=== PATIENT | female | born 1945 | race Caucasian/White ===

== ENCOUNTER 2017-02-17 12:39 | Inpatient (IN) | payer OTHER ==
[2017-02-17] VITALS (10 sets, daily range): BP systolic 68–115; BP diastolic 55–93
[~2017-02-17] VITALS: Ht 162.6 cm; Wt 94.1 kg
--- NOTE | ~2017-02-17 | HC ---
[facility] [place] [address] CONSULTATION Name: TRAVIS FISCHER Room #: 249-P ADM IN M.R.#: [id number] Admission: 02/17/17 Attend Phys: Lakeisha Escobar Discharge: Date of : 43 Report #: [id number] THIS REPORT FOR: //name// CC: FAM unknown Lakeisha Escobar Jasvir Albert DATE OF SERVICE: 02/26/2017 CHIEF COMPLAINT: Ischemic fingers and toes. HISTORY OF PRESENT ILLNESS: This is a 71-year-old female patient who was admitted to the hospital on 02/17/2017 with septic shock. She had been lethargic and was unable to stand on her own. She was visiting her son. She was noted to have ureteral calculus with urinary tract infection and E. coli sepsis. She was severely hypotensive and required support with multiple pressors over several days. She has developed some ischemic changes to her fingertips and toes. Subsequently, however, her sepsis picture has improved significantly. She is no longer on pressors and is awake and alert and not requiring any ventilatory support. PAST MEDICAL HISTORY: Positive once again for history of cardiomyopathy, multilobar pneumonia, urinary tract infection with Escherichia coli sepsis, hypertension. ALLERGIES: None. MEDICATIONS: Include acetaminophen, human albumin, amiodarone, chlorhexidine, Cipro, enoxaparin, hydrocodone, nitroglycerin, ondansetron, pantoprazole. She had previously been on Levophed as well as epinephrine and vasopressin drips. She also takes calcium carbonate, bupropion, aspirin, amitriptyline, cholecalciferol, cyclosporine, dicyclomine, fexofenadine, Synthroid, mometasone, montelukast, topiramate, primidone. FAMILY HISTORY: Noncontributory. REVIEW OF SYSTEMS: CONSTITUTIONAL: The patient denies fever or any chills. ENT: The patient denies earache, nasal drainage, sore throat. CARDIOVASCULAR: The patient denies chest pain or palpitations, diaphoresis. PULMONARY: The patient notes mild shortness of breath. GASTROINTESTINAL: The patient denies nausea or abdominal pain. ORTHOPEDIC: The patient does note blueness and discoloration to her fingertips, but denies pain and states that she still has tactile sensation there. Other systems in a 14-point review of systems are negative. [address] [address] CONSULTATION Name: TRAVIS FISCHER Room #: 249-P [facility] IN M.R.#: [id number] Admission: 02/17/17 Attend Phys: Lakeisha Escobar Discharge: Date of : 43 Report #: [id number] PHYSICAL EXAMINATION: VITAL SIGNS: At this time include temperature 36.6, pulse rate 94, blood pressure 101/57, pulse oximetry 98% on oxygen shield. GENERAL: This is a chronically ill-appearing female patient appears to be in minimal distress. HEENT: Head is normocephalic. Nose and throat clear. NECK: Supple. LUNGS: Diminished. HEART: Regular rhythm. ABDOMEN: Soft. Bowel sounds present. EXTREMITIES: Demonstrate palpable distal pulses. She has discoloration, duskiness, blueness and some areas of early eschar to the tips of almost all of her fingers. Her toes have much less color change and appear that they have normal capillary refill. Her fingertips, however, continued to feel soft and she seems to have tactile and light touch sensation present. LABORATORY DATA: Includes sodium 137, potassium 3.3, chloride 104, CO2 of 33, BUN 13, creatinine 0.8, glucose 128. SGOT is 93, total bilirubin 0.5, calcium 7.4, phosphorus 1.8, alkaline phosphatase 121, SGPT 101, total protein 4.8, white blood cell count is 10.6 with hemoglobin 6.8, hematocrit 20.0. CLINICAL IMPRESSION: 1. Ischemic changes to the tips of the fingers and less so to the toes in the setting of severe septic shock requiring vasopressor support. 2. Escherichia coli sepsis. 3. History of cardiomyopathy. 4. Obstructive uropathy with left-sided hydronephrosis, status post urostomy. RECOMMENDATIONS: At this point in time, the patient has had a bilateral upper extremity Doppler, which shows no obstruction. At this point, she is no longer requiring vasopressor support and seems to be perfusing fairly well. It is difficult to say whether she will have any tissue loss involving her fingers. At this point now; however, the fingers appear to be soft and there may be viable tissue present. I do not feel that it would be appropriate to debride. I do not think that she will require topical Betadine at this time as the tissue still seems pliable. I think that she will probably have some shutting or sloughing at some of the outer layers of skin with hopes that there may be a healthy base underneath with ultimately no tissue loss, although this cannot be guaranteed. I have discussed these findings extensively and answered all questions at the bedside for the patient and family members. At this point, simple observation would be appropriate. We will continue to follow her [facility] [address] [place] [address] CONSULTATION Name: TRAVIS FISCHER Room #: 249-P ADM IN M.R.#: [id number] Admission: 02/17/17 Attend Phys: Lakeisha Escobar Discharge: Date of : 43 Report #: [id number] closely. I have reviewed findings with Dr. Harshal Subramanian. I appreciate having been asked to see her in consultation. <ELECTRONICALLY SIGNED> By: Pedro Santillan MD 03/01/17 0834 1740 0045 Pedro Santillan MD /nt
--- NOTE | ~2017-02-17 | EKG ---
[place] [address] [facility] [place] [address] ELECTROCARDIOGRAM REPORT Name: TRAVIS FISCHER Room #: 249-P ADM IN M.R.#: [id number] Admission: 02/17/17 Attend Phys: Lakeisha Escobar Discharge: Date of : 43 Report #: [id number] THIS REPORT FOR: //name// [facility] ED Test Date: 2017-02-17 Test Time: 14:16:29 Pat Name: TRAVIS FISCHER Department: Room: 249 Gender: F Diesel Mechanic: debra goldberg rn : 1945 Requested By: Chandra Soriano Order Number: [id number] MD: Chad Weeks Measurements Intervals [place] Rate: 95 P: 11 NE: 158 QRS: -32 QRSD: 107 T: 41 QT: 336 QTc: 423 Interpretive Statements Sinus rhythm Inferior infarct, old No previous ECG available for comparison Electronically Signed On 02-17-2017 23:04:28 DIRECTOR OF CONSUMER MARKETING by Chad Weeks [email or web address] <ELECTRONICALLY SIGNED> By: Chad Weeks MD 02/17/17 2304 1416 141 Chad Weeks MD /DAVID
--- NOTE | ~2017-02-17 | 2DMMODE ---
[facility] [address] [employer] [address] 2 D/M-MODE ECHOCARDIOGRAM Name: AMADOTRAVIS Room #: 249-P ADM IN M.R.#: [id number] Admission: 02/17/17 Attend Phys: Lakeisha Castrejon Discharge: Date of : 43 Date of Service: 02/21/17 1210 Report #: [id number] THIS REPORT FOR: //name// APPROVED REPORT Study performed: 02/20/2017 10:09:16 EXAM: Comprehensive 2D, Doppler, and color-flow Echocardiogram Patient Location: Bedside Room #: 249 Status: on-call BSA: 2.08 HR: 99 bpm BP: 112/72 mmHg Rhythm: NSR Other Information Study Quality: Good Risk Factors: Cardiac Risk Factors: HTN Indications Cardiomyopathy Respiratory distress Elevated troponin 2D Dimensions LVEF(%): 32.18 (>50%) IVSd: 7.45 (7-11mm) LVOT Diam: 20.44 (18-24mm) LVDd: 58.46 mm PWd: 8.12 (7-11mm) Ascending Ao: 36.36 (22-36mm) LVDs: 49.41 (25-40mm) Aortic Root: 32.02 mm LV Single Plane 4CH: 27.91 % LV Single Plane 2CH: 23.65 % Quiroz's LVEF: 25.78 % Biplane EF: 24.3 % Volumes Left Atrial Volume (Systole) Single Plane 4CH: 53.52 mL Single Plane 2CH: 48.76 mL LA ESV Index: 26.00 mL/m2 Aortic Valve AoV Peak Alexei.: 0.98 m/s [facility] [address] [address] 2 D/M-MODE ECHOCARDIOGRAM Name: TRAVIS FISCHER Room #: 249-P [facility] IN [facility].#: [id number] Admission: 02/17/17 Attend Phys: Lakeisha Castrejon Discharge: Date of : 43 Date of Service: 02/21/17 1210 Report #: [id number] Peak Gr.: 3.84 mmHg LVOT Max P.04 mmHg LVOT Max V: 0.51 m/s PRASHANT Vmax: 1.70 cm2 Mitral Valve E/A Ratio: 1.0 MV Decel. Time: 144.12 ms MV E Max Alexei.: 0.73 m/s MV A Alexei.: 0.75 m/s MV PHT: 41.79 ms IVRT: 79.58 ms TDI E/Lateral E': 18.25 E/Medial E': 14.60 Medial E' Alexei.: 0.05 m/s Lateral E' Alexei.: 0.04 m/s Pulmonary Valve PV Peak Alexei.: 0.70 m/s PV Peak Gr.: 1.98 mmHg DE End Vmax: 1.72 m/s Tricuspid Valve TR Peak Alexei.: 2.62 m/s TR Peak Gr.: 27.43 mmHg Left Ventricle The left ventricle is normal size. There is global hypokinesis of the left ventricle with the exception of a very small basilar region. There is normal left ventricular wall thickness. Left ventricular systolic function is severely decreased. LVEF is 25-30%. Grade I - abnormal relaxation pattern. Right Ventricle The right ventricle is normal size. The right ventricular systolic function is normal. Atria The left atrium size is normal. The right atrium size is normal. Aortic Valve The aortic valve is normal in structure. No aortic regurgitation is present. There is no aortic valvular stenosis. Mitral Valve The mitral valve is normal in structure. Moderate to severe mitral [address] [address] 2 D/M-MODE ECHOCARDIOGRAM Name: TRAVIS FISCHER Room #: 249-P [facility] IN ..#: [id number] Admission: 02/17/17 Attend Phys: Lakeisha Casterjon Discharge: Date of : 43 Date of Service: 02/21/17 1210 Report #: [id number] regurgitation No evidence of mitral valve stenosis. Tricuspid Valve The tricuspid valve is normal in structure. Mild to moderate tricuspid regurgitation. Pulmonic Valve The pulmonary valve is normal in structure. Moderate pulmonic regurgitation. Great Vessels The aortic root is normal in size. IVC is not well visualized. Pericardium There is no pericardial effusion. <Conclusion> The left ventricle is normal size. LVEF is 25-30%. There is global hypokinesis of the left ventricle with the exception of a very small basilar region. The aortic valve is normal in structure. The mitral valve is normal in structure. Moderate to severe mitral regurgitation with an eccentric jet The tricuspid valve is normal in structure. Mild to moderate tricuspid regurgitation. The pulmonary valve is normal in structure. Moderate pulmonic regurgitation. There is no pericardial effusion. <ELECTRONICALLY SIGNED> By: Richy Patel MD 02/21/17 1210 1210 09 Richy Patel MD /INF
--- NOTE | ~2017-02-17 | EKG ---
[place] [address] [facility] [place] [address] ELECTROCARDIOGRAM REPORT Name: AMADOTRAVIS Room #: 249-P ADM IN M.R.#: [id number] Admission: 02/17/17 Attend Phys: Lakeisha Escobar Discharge: Date of : 43 Report #: [id number] THIS REPORT FOR: //name// [facility] Test Date: 2017-02-17 Test Time: 22:19:10 Pat Name: TRAVIS FISCHER Department: Room: 249 P Gender: F Digital Project Coordinator: Griselda ODONNELL : 1945 Requested By: Lakeisha Escobar Order Number: [id number] MD: Chad Weeks Measurements Intervals [place] Rate: 96 P: 44 [place]: 131 QRS: -46 QRSD: 129 T: 52 QT: 377 QTc: 477 Interpretive Statements Sinus rhythm Nonspecific IVCD with LAD No previous ECG available for comparison Electronically Signed On 02-17-2017 23:09:09 RESTAURANT ATTENDANT by Chad Weeks [email or web address] <ELECTRONICALLY SIGNED> By: Chad Weeks MD 02/17/17 2309 18 18 Chad Weeks MD /DAVID
--- NOTE | ~2017-02-17 | EKG ---
[place] [address] [facility] [place] [address] ELECTROCARDIOGRAM REPORT Name: TRAVIS FISCHER Room #: 249-P ADM IN M.R.#: [id number] Admission: 02/17/17 Attend Phys: Lakeisha Escobar Discharge: Date of : 43 Report #: [id number] THIS REPORT FOR: //name// [facility] Test Date: 2017-02-25 Test Time: 06:11:06 Pat Name: TRAVIS FISCHER Department: Room: 249 P Gender: F Adventure Guide: KWAME : 1945 Requested By: Domenic Escoto Order Number: [id number] MD: Miguel A Jerez Measurements Intervals [place] Rate: 93 P: 20 [place]: 127 QRS: -43 QRSD: 111 T: 51 QT: 429 QTc: 534 Interpretive Statements Sinus rhythm Left anterior fascicular block Early R-wave progression Nonspecific intraventricular conduction delay Prolonged QT interval Nonspecific T wave abnormality Compared to ECG 02/17/2017 22:19:10 Nonspecific change in the ST and T-wave segments Electronically Signed On 02-25-2017 8:06:02 PET [employer]OD DEBONER by Miguel A Jerez [email or web address] <ELECTRONICALLY SIGNED> By: Miguel A Jerez MD, [facility] 02/25/17 0806 0 Miguel A Jerez MD, [facility] /EPI
--- NOTE | ~2017-02-17 | S ---
[facility] [place] [address] SURGICAL PATH RPT PROCEDURE Name: TRAVIS FISCHER Room #: 249-P ADM IN M.R.#: [id number] Admission: 02/17/17 Date of : 43 Discharge: Report #: [id number] Path Case #: [id number] PATHOLOGY REPORT COLLECTION DATE: 02/23/2017 RECEIVED DATE: 02/23/2017 SUBMITTING PHYS: Dr. Lakeisha Escobar OTHER PHYS: Dr. Jasvir Lucas SPECIMEN(S) RECEIVED: A.Peripheral smear * * * * * * * * * * * * FINAL DIAGNOSIS: Peripheral smear: - Thrombocytopenia, marked, with occasional circulating large platelets. - Mild neutrophilic leukocytosis with leukoerythroblastic reaction and toxic changes. - Normocytic normochromic anemia, mild. COMMENT: The peripheral smear shows marked thrombocytopenia with occasional circulating large platelets, mild normocytic normochromic anemia, and mild neutrophilic leukocytosis with leukoerythroblastic reaction and toxic changes. With regard to the thrombocytopenia, would rule out causes of increased peripheral platelet destruction, such as ITP. In that regard, I see no evidence of a red cell fragmentation disorder. With regard to the neutrophilic leukocytosis with toxic changes, would rule out causes of a reactive neutrophilia. The leukoerythroblastic reaction is most likely reactive. (ANNEM:shay; 02/23/2017) PATHOLOGIST: Adrian Brasher M.D. REPORT ELECTRONICALLY SIGNED BY: Adrian Brasher M.D. DATE/TIME: 02/23/2017 16:40 * * * * * * * * * * * * MICROSCOPIC DESCRIPTION: Laboratory Data: The WBC count is 22.8 K/CMM, and the WBC differential reveals 82% segmented neutrophils, 7.0% bands, 4.0% lymphocytes, 6.0% monocytes, and 1.0% eosinophils. The RBC count is 3.60 M/CMM, hemoglobin 10.7 G/DL, hematocrit 32.5%, MCV 90.1 FL, MCH 29.7 PG, MCHC 32.9 G/DL, and the RDW is 16.7%. The platelet count is 26 K/CMM. [address] [address] SURGICAL PATH RPT PROCEDURE Name: TRAVIS FISCHER Room #: 249-P ADM IN [facility].#: [id number] Admission: 02/17/17 Date of : 43 Discharge: Report #: [id number] Path Case #: [id number] Peripheral Smear: The peripheral smear is reviewed. The WBC count is mildly increased due to an absolute neutrophilia. The WBC differential reveals a predominance of segmented neutrophils, with smaller populations of band neutrophils, monocytes, and lymphocytes noted. Some neutrophils show toxic granulation. There is a leukoerythroblastic reaction which is comprised of occasional circulating myelocytes and metamyelocytes and rare circulating nucleated red blood cells. There are no circulating blasts. The lymphocyte population consists predominantly of small lymphocytes. There is an occasional reactive lymphocyte and a few plasma cells noted. Red blood cells predominantly appear normochromic and normocytic. Red blood cells show mild anisocytosis. Red blood cells show no significant poikilocytosis. There is no morphologic evidence of hemolysis or red cell fragmentation disorder. Platelets are markedly decreased with occasional large platelets noted. (JPM:rlm; 02/23/2017) CLINICAL HISTORY: None Provided INITIAL CPT CODE(S): A; NC Professional services performed by [employer] at [facility], [address] [place] [address]. Technical services performed by [employer] at [address] [place] [address], [address], [place] [address]. Chandra Soriano [facility] [address] [place] [address] PHONE: [phone] DIRECTOR: Benson Lazo M.D. * * * END OF REPORT * * *
--- NOTE | ~2017-02-17 | HC ---
[facility] [place] [address] CONSULTATION Name: AMMYJESSITRAVIS Room #: 249-P ADM IN M.R.#: [id number] Admission: 02/17/17 Attend Phys: Lakeisha Escobar Discharge: Date of : 43 Report #: [id number] THIS REPORT FOR: //name// CC: FAM unknown Lakeisha Escobar Jasvir Albert DATE OF SERVICE: 02/17/2017 REASON FOR CONSULTATION: Elevated creatinine. HISTORY OF PRESENT ILLNESS: This is a 71-year-old female who lives in [place], [place]. She traveled down to be with family here in the [place] area two days ago. Early yesterday she felt fine, although somewhat weak. By late yesterday, she was beginning to have some left flank pain and was concerned that she might have a kidney stone. She has a past history of kidney stones. By this morning, she was unable to get up and then was found on the floor, the weakness persisted, she had some slurred speech, slowed sensorium and was brought here to the Emergency Room. Upon presentation, she was found to be febrile to 99.7 degrees Fahrenheit. She originally had a good blood pressure, but then she has gotten hypotensive with pressures in the 80s and 90s systolic. She has been tachycardic with low 100 rate. She has been on some supplemental oxygen. She has gotten 4 liters of IV fluid. With that, blood pressure has not changed very much. She is more awake and responsive though. The patient was found to have a BUN of 50, creatinine of 3.7 and elevated transaminases with an AST of 1396 and ALT of 1142. Lactate was 3.4. White count was 12.7. She had a chest x-ray which showed potential bilateral infiltrates. She was acidotic on a blood gas with a pH of 7.26, pCO2 of 31 and pO2 of 69. Lactate on that was only 1.44. Her urinalysis showed some pyuria and hematuria. In talking to the patient at this time, she is more awake. Originally, she does not complain much of the flank pain. She tells me she has had kidney stones intermittently over the years and she is quite certain that it felt like that yesterday, less so today. In spite of that, she has not had much intake of food and fluids and this was further confirmed by her son who is with her at this time. She is unaware of how much urine she has been passing. She states that the last time she had a kidney stone, it had to be extracted surgically. PAST MEDICAL HISTORY: Hypothyroidism on replacement. She has some osteoporosis. She has had numerous surgeries over the years include tonsillectomy and adenoidectomy as a child, appendectomy in 1967, nasal surgery, tubal ligation in 1980, hysterectomy in the , abdominoplasty in 1996, bladder suspension in 1999, cholecystectomy in 1999, left shoulder surgery in 2001, rotator cuff in 2005 on the right shoulder, lumpectomy in the left breast in 2011 and right breast in 2004 apparently benign, nephrolithotomy in 2009, right total hip replacement in 2012, skin cancer removed from her nose about a [facility] [address] [place] [address] CONSULTATION Name: TRAVIS FISCHER Room #: 249-P ADM IN M.R.#: [id number] Admission: 02/17/17 Attend Phys: Lakeisha Escobar Discharge: Date of : 43 Report #: [id number] year ago and further repair of her right hip in 2015 after the joint became displaced. MEDICATIONS: On admission, amitriptyline 100 mg daily, Topamax 25 mg b.i.d., bupropion 150 mg t.i.d., fexofenadine 180 mg daily, Nasonex 50 mcg inhaled, levothyroxine 0.05 mg daily, omeprazole 20 mg daily, Restasis eye drops, aspirin 81 mg daily, multivitamin daily, calcium plus vitamin D 600 mg daily, primidone 50 mg b.i.d., montelukast 10 mg daily, MiraLax 17 gram daily, dicyclomine 20 mg p.r.n. and also apparently got some Prolia. FAMILY HISTORY: Noncontributory. SOCIAL HISTORY: The patient is a and lives in [place], [place]. She is retired. She is down visiting family including a son and a daughter apparently both who live in the area here. REVIEW OF SYSTEMS: Past day or two has had a poor intake of food and fluids. Denies nausea at this time. No vomiting, no diarrhea, although obviously by her meds, she has some chronic bowel issues. Reports no difficulty passing urine. She did have some left flank discomfort. Mild chronic dyspnea worse recently. She has had some recent cough. Unaware of fevers, chills or sweats, myalgias, arthralgias. No oral lesions. Reports no visual or hearing changes. PHYSICAL EXAMINATION: GENERAL: Acutely ill-appearing female. She is more awake than she has been and is responding fairly readily to me and giving a very pertinent history. VITAL SIGNS: Blood pressure 92/62, heart rate 100, oxygen saturation 94% and respiratory rate 22. HEENT: Shows pupils are equal and reactive. Sclerae nonicteric. Oral mucosa is parched. NECK: Supple, no adenopathy or JVD, no bruit. CHEST: Shows decreased breath sounds, right side and better excursion on the left. I hear no wheezes or rales. HEART: Distant heart tones with regular rate and rhythm ____ on a tachycardia. ABDOMEN: Has diminished bowel sounds. Abdomen is tender in the left upper quadrant. I cannot find organomegaly or masses. BACK: Shows very substantial left CVA tenderness and left flank tenderness. EXTREMITIES: Show no peripheral edema. She has diminished pedal pulses. NEUROLOGIC: She is moving all extremities and is more alert and responsive at this time. DIAGNOSTIC DATA: Sodium 138, potassium 4.6, chloride 105, bicarbonate 18, BUN 50, creatinine 3.7 and glucose 95. AST 1396, ALT 1142, calcium 9.3, alkaline phosphatase is 183, total protein 6.6, albumin 3.2. INR is 1.2. White count 18.5, hemoglobin 12.5, hematocrit 38.8 and platelets 144,000. Urinalysis on admission: Specific gravity 1.025, pH 6.0, 1+ protein, 2+ blood, 2+ leukocytes with 6-15 white cells, 3-10 red cells and many bacteria. Blood gas pH 7.26, [address] [address] CONSULTATION Name: TRAVIS FISCHER Room #: 249-P [facility] IN M.R.#: [id number] Admission: 02/17/17 Attend Phys: Lakeisha Escobar Discharge: Date of : 43 Report #: [id number] pCO2 of 31 and pO2 of 69. ASSESSMENT AND PLAN: 1. Sepsis with leukocytosis, low grade fever, hypotension. I am very concerned that she has an obstructive kidney stone with infection behind it. She is very tender in the left flank. She has a long history of nephrolithiasis although her last one was prior couple of years ago. We need to image her kidney to identify if she is obstructed because she may need a percutaneous nephrostomy to take care of that. From a sepsis standpoint, she has already gotten 4 liters of IV fluids. She needs some maintenance IV fluids. There is some concern over her respiratory status, but on looking at her, she is not volume overloaded. Blood pressure is actually improving at this point running systolic in the 90s and the mean arterial pressure more in the 70s. We will put her on some saline at 150 an hour. 2. Acute kidney injury. She might have some chronic component of this. She remembers being told when she was getting her Prolia shot that her creatinine levels have been a bit elevated at home and that was in the last couple of months. With that in mind, she likely has some chronic kidney disease. We will have to see how she responds at this point, but I think that 3.2 is definitely elevated. 3. Nephrolithiasis, high suspicion. We will get a CT with stone protocol to look at that obviously. No IV contrast. Pending those results, she may need intervention either from Urology or from Radiology to relieve that obstruction. 4. Pulmonary infiltrates, now on broad-spectrum antibiotics. 5. Urinary tract infection with hematuria and pyuria. Again very concerned for a stone. 6. Elevated transaminases. To be at this level, this is either septic, ischemic or toxic from a drug. I cannot find that she has gotten any toxic levels of acetaminophen or another agent and certainly suggests this is more hypotension/sepsis. PLAN: 1. We will give a CT scan tonight, stone protocol, no IV contrast. 2. Start IV fluids, normal saline at 150 mL per hour. 3. Continue broad-spectrum antibiotics. 4. Await culture results. 5. Repeat labs in the morning. 6. If she has further hypotension, she will need pressors. 7. Very close followup with this acutely ill patient. <ELECTRONICALLY SIGNED> By: Jasvir Albert MD 02/28/17 1231 [id number] Jasvir Albert MD /nt
--- NOTE | ~2017-02-17 | HC ---
[facility] [place] [address] [place] [address] CONSULTATION Name: TRAVIS FISCHER Room #: 249-P ADM IN M.R.#: [id number] Admission: 02/17/17 Attend Phys: Lakeisha Escobar Discharge: Date of : 43 Report #: [id number] THIS REPORT FOR: //name// CC: FAM unknown Lakeisha Albert TYPE OF REPORT: Infectious diseases consultation. REASON FOR CONSULTATION: I was asked to evaluate concerning a gram-negative septic shock. HISTORY OF PRESENT ILLNESS: The patient is a 71-year old who lives in [place], who was visiting her son this week. For the last 48 hours had complained of generalized weakness and being cold. She then developed some left flank discomfort. On 02/17/2017, she presented to the Emergency Room after being too weak to get up off the toilet. She was also confused. She had some slurred speech. When presenting to the Emergency Room, she was noted to have fever. Following admission, she has had CT scan, which showed evidence of left ureteral obstruction. Urine culture has grown E. coli. Blood cultures have shown gram-negative bacilli yet to be identified. She underwent a percutaneous nephrostomy last evening. Last evening, underwent left percutaneous nephrostomy without complication. Through the night, the patient has been hypotensive, on Levophed drip. She then developed respiratory failure, required emergent intubation and mechanical ventilation. She is now on Levophed drip and vasopressin. She is sedated. No cardiac issues identified. ALLERGIES: No known allergies. MEDICATIONS: As noted on her MAR. She was given vancomycin, Zosyn and levofloxacin. PAST MEDICAL HISTORY: Hypothyroidism, osteoporosis, nephrolithiasis, hysterectomy, abdominoplasty, bladder suspension surgery, cholecystectomy, bilateral shoulder surgeries, left breast mass 2005 status post lumpectomy and record states that was benign and the patient's son states she had cancer and right total hip arthroplasty with a second revision. FAMILY HISTORY: Noncontributory. SOCIAL HISTORY: Nonsmoker. No significant alcohol intake. REVIEW OF SYSTEMS: Prior to her admission, she had no cough, sputum, nausea, vomiting or diarrhea. Did not report any dysuria or frequency either. PHYSICAL EXAMINATION: VITAL SIGNS: She is currently afebrile, blood pressure is stable on [facility] [address] [place] [address] CONSULTATION Name: TRAVIS FISCHER Room #: [address] [place] [address] IN .R.#: [id number] Admission: 02/17/17 Attend Phys: Lakeisha Escobar Discharge: Date of : 43 Report #: [id number] vasopressors. She was sedated. GENERAL: She is orally intubated. Left nephrostomy tube was in place with clear urine in the tubing. Did have some bloody urine in the bag. Indwelling Al catheter in place with clear urine. Right upper extremity PICC was unremarkable. CHEST: Clear anteriorly. HEART: Regular, without murmur. ABDOMEN: Soft. The patient would grimace with palpation. No appreciable mass identified. EXTREMITIES: Unremarkable. LABORATORY STUDIES: Sodium 137, potassium 4.5, bicarbonate of 19 and creatinine 4.3. Lactate 2. AST 193. ALT 144, bilirubin 2.6 and alkaline phosphatase 125. Hemoglobin 10.6; platelet count 54,000 and white count 16.7 with 15% bands. MRSA screen negative. Urinalysis, few wbc's, rbc's and many bacteria. I do not have a sample from the left nephrostomy. Urine culture, E. coli, fully susceptible. Blood culture, gram-negative bacilli, identification pending. RADIOLOGICAL DATA: Chest x-ray, perihilar infiltrates with basilar changes as well. There was some vascular congestion. IMPRESSION AND RECOMMENDATIONS: Septic shock with Escherichia coli pyelonephritis and ureteral obstruction from a stone. She has multisystem failure with respiratory failure, hyperbilirubinemia, likely shock liver and acute renal failure. Recommend full intensive care unit care with sepsis protocol and antibiotic therapy. Urology has been following. Discussed with Pulmonary Medicine this morning. We will continue aggressive measures. Discussed with family at the bedside. <ELECTRONICALLY SIGNED> By: Domenic Escoto MD 02/20/17 1044 1230 32 Domenic Escoto MD /nt
--- NOTE | ~2017-02-17 | HC ---
[facility] [address] [address] [place] [address] CONSULTATION Name: TRAVIS FISCHER Room #: 249-P ADM IN M.R.#: [id number] Admission: 02/17/17 Attend Phys: Lakeisha Escobar Discharge: Date of : 43 Report #: [id number] THIS REPORT FOR: //name// CC: FAM unknown Lakeisha Escobar Jasvir Albert DATE OF SERVICE: 02/18/2017 HISTORY OF PRESENT ILLNESS: This is a 71-year-old female patient who was evaluated by me for a complicated history. History is not very clear. The neurological consultation is requested because of the leg weakness. The best history I can tell is that this is going on for several months or may be years. She had hip replaced. Initially, it did well, but subsequently it has given her a lot of problems. So she has trouble with the right lower extremity. She apparently fell and after that, she has quite a significant trouble with the lower extremities and she is profoundly weak there. She had pelvic x-rays done and that did not show any definite abnormality. She lives in [place] and was visiting her son and she also has numerous other medical problems including kidney problems and respiratory problem. REVIEW OF SYSTEMS: Indicated that she has a history of congestive heart failure, acute kidney injury, looks like she has stone and she is being evaluated by Urology. She denies any stroke in the past. She may have had some trouble with both legs to some extent, but I do not think the arm was affected. This was her relevant 14-point review of system. PAST MEDICAL HISTORY: Negative for any major stroke, but is positive for right hip problem. FAMILY HISTORY: Negative for early age stroke. SOCIAL HISTORY: She presently lives with her son, usually she lives in [place]. PHYSICAL EXAMINATION: Indicate she is alert. She is responsive. She can follow simple command. Her speech, concentration, fund of knowledge and memory looks her baseline. Cranial nerve examination 2-12 is unremarkable. Strength in the upper extremity is relatively preserved. Strength in the lower extremities is significantly diminished, especially in the proximal musculature. She indicates that her position sense is intact. She is moderately obese. She is in respiratory distress. She has no carotid bruit or renal mass. She does not have any edema, cyanosis or jaundice. Her blood pressure is 100/73, respirations 26, pulse is 108. LABORATORY DATA: Indicate white count of 14.2. She did have a CT scan of the head, which looks unremarkable. [facility] [address] [place] [address] CONSULTATION Name: TRAVIS FISCHER Room #: 249-P [facility] IN .R.#: [id number] Admission: 02/17/17 Attend Phys: Lakeisha Escobar Discharge: Date of : 43 Report #: [id number] IMPRESSION: It is not clear what the etiology of her leg weakness is. I think she needs some more workup because it looks like it had become worse recently. We do not have an EMG which we need and we will start with MRI of the thoracic and lumbar spine to make sure that no pathology occurred when she fell down. She indicates there is no contraindication. We will make sure Pulmonary is okay before she go for that. RECOMMENDATION: 1. MRI of the lumbar and thoracic spine. 2. Evaluate further depending upon that. 3. MRI should make sure that there is no problem with her artificial hip. Thank you very much for this referral and Dr. Toth will follow up this patient with you tomorrow. <ELECTRONICALLY SIGNED> By: Micheal Gibson MD 02/26/172000 1035 2209 Micheal Gibson MD /nt
[2017-02-17 14:25] LABS: HEMATOCRIT 38.8 % (37.0-47.0); HEMOGLOBIN 12.5 gm/dL (12.0-15.0); MCHC 32.4 g/dL (28.0-37.0); MCV 92.6 fL (80.0-100.0); RBC 4.18 mil/uL (4.20-5.00); RDW 17.4 % (10.5-14.5); WBC 18.5 thou/uL (4.0-11.0)
[2017-02-17 14:49] LABS: ALBUMIN 3.2 g/dL (3.4-5.0); ANION GAP 15 mmol/L (7-16); CALCIUM 9.3 mg/dL (8.5-10.1); CHLORIDE 105 mmol/L (98-107); CO2 18 mmol/L (21-32); CREATININE 3.7 mg/dL (0.6-1.0); GLUCOSE 95 mg/dL (74-106); POTASSIUM 4.6 mmol/L (3.5-5.1); SGOT 1396 U/L (15-37); SGPT 1142 U/L (30-65); SODIUM 138 mmol/L (136-145); TOTAL BILIRUBIN 2.5 mg/dL (<0.1-1.0); TOTAL PROTEIN 6.6 g/dL (6.4-8.2); TROPONIN-I < 0.04 ng/mL (<0.06)
[2017-02-17 14:50] LABS: BUN 50 mg/dL (7-18)
[2017-02-17 15:32] LABS: URINE BILIRUBIN NEGATIVE (Negative); URINE BLOOD 2+ (Negative); URINE CLARITY CLEAR; URINE COLOR YELLOW; URINE GLUCOSE-RANDOM* NEGATIVE (Negative); URINE KETONES NEGATIVE (Negative); URINE NITRITE-REFLEX NEGATIVE (Negative); URINE PROTEIN (DIPSTICK) 1+ (Negative); URINE SPECIFIC GRAVITY 1.025 (1.005-1.035); URINE UROBILINOGEN 0.2 E.U./dl (0.2-1.0)
[2017-02-17 15:36] LABS: URINE LEUKOCYTES-REFLEX 2+ (Negative)
[2017-02-17 15:38] LABS: BACTERIA-REFLEX >30 Many /HPF (None Seen); CASTS None Seen /LPF (None Seen); CRYSTALS None Seen /LPF (None Seen); SQUAMOUS 0-3 Few /LPF (0-3); URINE RBC 3-10 Few /HPF (0-2); URINE WBC-REFLEX 6-15 Few /HPF (0-5)
[2017-02-17 17:10] LABS: BE(vivo) -12.2 mmol/L (-2 to +3); HCO3 13.7 mmol/L (22.0-26.0); PCO2 31.3 mmHg (35.0-45.0); pH 7.259 (7.360-7.450); sO2 91.5 % (92.0-98.0)
[2017-02-17 18:12] LABS: APTT 36.2 Seconds (24.5-32.8); INR 1.2; PROTIME 12.7 Seconds (9.3-11.4)
[2017-02-17 19:58] LABS: CREATININE 3.2 mg/dL (0.6-1.0); POTASSIUM 4.9 mmol/L (3.5-5.1)
[2017-02-17 20:07] LABS: CALCIUM 7.1 mg/dL (8.5-10.1)
[2017-02-17 22:04] LABS: CALCIUM 7.2 mg/dL (8.5-10.1); CREATININE 3.4 mg/dL (0.6-1.0); POTASSIUM 5.1 mmol/L (3.5-5.1)
[2017-02-18] VITALS (44 sets, daily range): BP systolic 63–119; BP diastolic 41–92
[2017-02-18 05:35] LABS: BE(vivo) -11.4 mmol/L (-2 to +3); HCO3 13.5 mmol/L (22.0-26.0); PCO2 27.8 mmHg (35.0-45.0); PO2 95.6 mmHg (80.0-100.0); sO2 96.8 % (92.0-98.0)
[2017-02-18 05:38] LABS: pH 7.305 (7.360-7.450)
[2017-02-18 06:36] LABS: ABSOLUTE NEUTROPHILS 13.6 thou/uL (1.4-8.2); BASOPHILS 0.2 % (0.0-2.0); EOSINOPHILS 0.4 % (0.0-3.0); HEMOGLOBIN 10.9 gm/dL (12.0-15.0); MCH 30.8 pg (26.0-34.0); MCHC 33.1 g/dL (28.0-37.0); MCV 93.1 fL (80.0-100.0); MONOCYTES 2.5 % (1.0-8.0); PLATELET COUNT 96 thou/uL (150-400); POLYS 95.9 % (36.0-66.0); RBC 3.54 mil/uL (4.20-5.00); RDW 17.5 % (10.5-14.5); WBC 14.2 thou/uL (4.0-11.0)
[2017-02-18 06:54] LABS: ALBUMIN 2.2 g/dL (3.4-5.0); CALCIUM 6.7 mg/dL (8.5-10.1); CREATININE 3.6 mg/dL (0.6-1.0); POTASSIUM 5.2 mmol/L (3.5-5.1); TOTAL PROTEIN 5.2 g/dL (6.4-8.2)
[2017-02-18] MEDS ORDERED: TUMS PO (15:13)
[2017-02-18] MEDS ORDERED: CENTRUM SILVER1 EAC4 PO (15:13)
[2017-02-18] MEDS ORDERED: VITAMIN D2000 UNIT PO (15:14)
[2017-02-18] MEDS ORDERED: PRIMIDONE50 MG PO (15:15)
[2017-02-18] MEDS ORDERED: SINGULAIR 10 MG10 M1 PO (15:16)
[2017-02-18] MEDS ORDERED: MIRALAX17 GM PO (15:16)
[2017-02-18] MEDS ORDERED: BENTYL 20 MG TA20 M1 PO (15:16)
[2017-02-18] MEDS ORDERED: TOPAMAX 25 MG T25 M1 PO (15:19)
[2017-02-18] MEDS ORDERED: ALLER-EASE180 MG PO (15:21)
[2017-02-18] MEDS ORDERED: SYNTHROID50 MCG PO (15:22)
[2017-02-18] MEDS ORDERED: NASONEX17 GM NASAL (15:22)
[2017-02-18] MEDS ORDERED: OMEPRAZOLE 20 M20 MG PO (15:26)
[2017-02-18] MEDS ORDERED: RESTASIS1 EACH OPHTHALMIC (15:27)
[2017-02-18] MEDS ORDERED: BAYER CHEWABLE81 MG PO (15:27)
[2017-02-18] MEDS ORDERED: AMITRIPTYLINE H25 M2 PO (15:36)
[2017-02-18] MEDS ORDERED: WELLBUTRIN XL150 MG PO (15:37)
[2017-02-18] MEDS ORDERED: LEVSIN0.125 MG PO (15:46)
[2017-02-19] VITALS (64 sets, daily range): BP systolic 48–119; BP diastolic 36–90
[2017-02-19 00:36] LABS: BE(vivo) -9.8 mmol/L (-2 to +3); HCO3 14.7 mmol/L (22.0-26.0); PCO2 28.1 mmHg (35.0-45.0); PO2 96.2 mmHg (80.0-100.0); pH 7.336 (7.360-7.450); sO2 97.1 % (92.0-98.0)
[2017-02-19 05:32] LABS: HEMATOCRIT 31.9 % (37.0-47.0); HEMOGLOBIN 10.6 gm/dL (12.0-15.0); MCH 30.5 pg (26.0-34.0); MCHC 33.1 g/dL (28.0-37.0); MCV 92.1 fL (80.0-100.0); RBC 3.46 mil/uL (4.20-5.00); RDW 17.5 % (10.5-14.5); WBC 16.7 thou/uL (4.0-11.0)
[2017-02-19 05:44] LABS: CREATININE 4.3 mg/dL (0.6-1.0); MAGNESIUM 1.7 mg/dL (1.8-2.4); PHOSPHORUS 2.3 mg/dL (2.5-4.9); POTASSIUM 4.5 mmol/L (3.5-5.1); TOTAL BILIRUBIN 2.6 mg/dL (<0.1-1.0); TOTAL PROTEIN 5.1 g/dL (6.4-8.2)
[2017-02-19 09:46] LABS: ABSOLUTE NEUTROPHILS 15.7 thou/uL (1.4-8.2); METAMYELOCYTES 1 %
[2017-02-19 09:48] LABS: BE(vivo) -7.2 mmol/L (-2 to +3); HCO3 18.5 mmol/L (22.0-26.0); PCO2 38.1 mmHg (35.0-45.0); PO2 425.4 mmHg (80.0-100.0); pH 7.305 (7.360-7.450); sO2 99.8 % (92.0-98.0)
[2017-02-19 09:49] LABS: ANISOCYTOSIS 1+; POLYCHROMASIA OCCASIONAL
[2017-02-19 09:50] LABS: PLATELET COUNT 54 thou/uL (150-400)
[2017-02-19 14:13] LABS: HCO3 17.8 mmol/L (22.0-26.0); PCO2 33.2 mmHg (35.0-45.0); PO2 183.7 mmHg (80.0-100.0); pH 7.347 (7.360-7.450); sO2 99.2 % (92.0-98.0)
[2017-02-19 14:58] LABS: ALBUMIN 1.9 g/dL (3.4-5.0); CALCIUM 6.4 mg/dL (8.5-10.1); CREATININE 4.3 mg/dL (0.6-1.0); POTASSIUM 4.3 mmol/L (3.5-5.1); TOTAL BILIRUBIN 2.8 mg/dL (<0.1-1.0); TOTAL PROTEIN 4.9 g/dL (6.4-8.2)
[2017-02-20 05:09] LABS: PCO2 39.2 mmHg (35.0-45.0); PO2 135.6 mmHg (80.0-100.0); pH 7.456 (7.360-7.450); sO2 98.8 % (92.0-98.0)
[2017-02-20 05:33] LABS: HEMOGLOBIN 10.3 gm/dL (12.0-15.0); RDW 16.9 % (10.5-14.5)
[2017-02-20 05:35] LABS: HEMATOCRIT 30.8 % (37.0-47.0); MCHC 33.5 g/dL (28.0-37.0); MCV 89.6 fL (80.0-100.0); RBC 3.44 mil/uL (4.20-5.00)
[2017-02-20 05:43] LABS: INR 1.1; PROTIME 11.3 Seconds (9.3-11.4)
[2017-02-20 05:48] LABS: ALBUMIN 1.6 g/dL (3.4-5.0); CALCIUM 6.5 mg/dL (8.5-10.1); POTASSIUM 3.5 mmol/L (3.5-5.1); TOTAL BILIRUBIN 2.6 mg/dL (<0.1-1.0); TOTAL PROTEIN 4.7 g/dL (6.4-8.2)
[2017-02-20 05:53] LABS: CREATININE 1.8 mg/dL (0.6-1.0)
[2017-02-20 08:12] LABS: ABSOLUTE NEUTROPHILS 12.4 thou/uL (1.4-8.2); ANISOCYTOSIS 1+; POLYCHROMASIA OCCASIONAL
[2017-02-20 08:13] LABS: PLATELET COUNT 28 thou/uL (150-400)
[2017-02-20 18:57] VITALS: BP 81/50
[2017-02-20 19:00] VITALS: BP 84/64
[2017-02-20 19:15] VITALS: BP 89/64
[2017-02-20 19:30] VITALS: BP 92/68
[2017-02-20 20:00] VITALS: BP 93/63
[2017-02-20 23:11] VITALS: BP 95/62
[2017-02-21 02:38] VITALS: BP 95/74
[2017-02-21 04:13] VITALS: BP 83/62
[2017-02-21 05:10] LABS: BE(vivo) 3.5 mmol/L (-2 to +3); HCO3 26.9 mmol/L (22.0-26.0); PCO2 36.4 mmHg (35.0-45.0); PO2 132.7 mmHg (80.0-100.0); pH 7.487 (7.360-7.450); sO2 98.9 % (92.0-98.0)
[2017-02-21 05:49] LABS: HEMOGLOBIN 9.6 gm/dL (12.0-15.0); MCH 29.9 pg (26.0-34.0)
[2017-02-21 05:51] LABS: HEMATOCRIT 28.3 % (37.0-47.0); MCHC 33.8 g/dL (28.0-37.0); MCV 88.5 fL (80.0-100.0); RDW 16.7 % (10.5-14.5)
[2017-02-21 05:56] LABS: PLATELET COUNT 19 thou/uL (150-400)
[2017-02-21 06:03] LABS: ALBUMIN 1.5 g/dL (3.4-5.0); CALCIUM 6.4 mg/dL (8.5-10.1); CREATININE 1.2 mg/dL (0.6-1.0); PHOSPHORUS 1.8 mg/dL (2.5-4.9); POTASSIUM 3.2 mmol/L (3.5-5.1)
[2017-02-21 06:57] LABS: ABSOLUTE NEUTROPHILS 13.6 thou/uL (1.4-8.2); PLATELET ESTIMATE DECREASED
[2017-02-21 09:42] LABS: ALBUMIN 1.6 g/dL (3.4-5.0); DIRECT BILIRUBIN 0.7 mg/dL (<0.1-0.3); TOTAL BILIRUBIN 1.4 mg/dL (<0.1-1.0); TOTAL PROTEIN 4.6 g/dL (6.4-8.2)
[2017-02-21 10:59] LABS: APTT 26.2 Seconds (24.5-32.8); PROTIME 10.7 Seconds (9.3-11.4)
[2017-02-22 05:04] VITALS: BP 100/74
[2017-02-22 05:42] LABS: HEMOGLOBIN 9.4 gm/dL (12.0-15.0)
[2017-02-22 05:43] LABS: HEMATOCRIT 27.5 % (37.0-47.0); MCV 88.2 fL (80.0-100.0); RBC 3.12 mil/uL (4.20-5.00); RDW 16.4 % (10.5-14.5); WBC 16.5 thou/uL (4.0-11.0)
[2017-02-22 05:55] LABS: ALBUMIN 1.6 g/dL (3.4-5.0); CREATININE 1.8 mg/dL (0.6-1.0); POTASSIUM 3.1 mmol/L (3.5-5.1)
[2017-02-22 06:01] LABS: CALCIUM 5.9 mg/dL (8.5-10.1)
[2017-02-22 11:05] LABS: ABSOLUTE NEUTROPHILS 15.7 thou/uL (1.4-8.2); ANISOCYTOSIS SLIGHT; PLATELET COUNT 23 thou/uL (150-400); PLATELET ESTIMATE DECREASED
[2017-02-22 13:08] LABS: HEPATITIS B SURFACE AG Negative (Negative)
[2017-02-22 14:32] VITALS: BP 90/64
[2017-02-22 17:27] LABS: CALCIUM 7.7 mg/dL (8.5-10.1); MAGNESIUM 1.9 mg/dL (1.8-2.4); POTASSIUM 3.2 mmol/L (3.5-5.1)
[2017-02-22 20:04] VITALS: BP 88/58
[2017-02-23] VITALS (14 sets, daily range): BP systolic 71–115; BP diastolic 49–83
[2017-02-23 05:43] LABS: HEMATOCRIT 32.5 % (37.0-47.0); HEMOGLOBIN 10.7 gm/dL (12.0-15.0); MCH 29.7 pg (26.0-34.0); MCHC 32.9 g/dL (28.0-37.0); MCV 90.1 fL (80.0-100.0); PLATELET COUNT 26 thou/uL (150-400); RDW 16.7 % (10.5-14.5); WBC 22.8 thou/uL (4.0-11.0)
[2017-02-23 05:57] LABS: ALBUMIN 1.7 g/dL (3.4-5.0); CALCIUM 7.8 mg/dL (8.5-10.1); PHOSPHORUS 1.4 mg/dL (2.5-4.9); POTASSIUM 3.7 mmol/L (3.5-5.1)
[2017-02-23 05:59] LABS: CREATININE 0.7 mg/dL (0.6-1.0)
[2017-02-23 07:34] LABS: ABSOLUTE NEUTROPHILS 20.3 thou/uL (1.4-8.2)
[2017-02-23 07:36] LABS: ANISOCYTOSIS 1+; LARGE PLATELETS OCCASIONAL; PLATELET ESTIMATE DECREASED; POIKILOCYTOSIS SLIGHT
[2017-02-23 07:47] LABS: % SATURATION 34 % (20-39); IRON 65 ug/dL (50-170); TIBC 193 ug/dL (250-450)
[2017-02-23 08:51] LABS: FOLIC ACID 15.4 ng/mL (8.6-58.9)
[2017-02-23 14:09] LABS: ADENOVIRUS Negative (Negative); INFLUENZA A Negative (Negative); INFLUENZA B Negative (Negative); METAPNEUMOVIRUS Negative (Negative); PARAINFLUENZA 1 Negative (Negative); PARAINFLUENZA 2 Negative (Negative); PARAINFLUENZA 3 Negative (Negative); RHINOVIRUS Negative (Negative); RSV A Negative (Negative); RSV B Negative (Negative)
[2017-02-24] VITALS (31 sets, daily range): BP systolic 69–97; BP diastolic 42–59
[2017-02-24 04:58] LABS: BE(vivo) 5.4 mmol/L (-2 to +3); HCO3 28.1 mmol/L (22.0-26.0); PCO2 33.8 mmHg (35.0-45.0); PO2 84.1 mmHg (80.0-100.0); pH 7.538 (7.360-7.450); sO2 97.3 % (92.0-98.0)
[2017-02-24 05:05] LABS: HEMATOCRIT 26.4 % (37.0-47.0); MCH 30.5 pg (26.0-34.0); MCV 89.7 fL (80.0-100.0); RBC 2.95 mil/uL (4.20-5.00); RDW 16.3 % (10.5-14.5); WBC 16.7 thou/uL (4.0-11.0)
[2017-02-24 05:20] LABS: CALCIUM 7.3 mg/dL (8.5-10.1); CREATININE 0.6 mg/dL (0.6-1.0); POTASSIUM 3.9 mmol/L (3.5-5.1)
[2017-02-24 07:37] LABS: ANISOCYTOSIS SLIGHT; LARGE PLATELETS OCCASIONAL; PLATELET COUNT 25 thou/uL (150-400); PLATELET ESTIMATE DECREASED; POIKILOCYTOSIS SLIGHT; POLYCHROMASIA SLIGHT
[2017-02-25] VITALS (47 sets, daily range): BP systolic 81–118; BP diastolic 41–71
[2017-02-25 05:18] LABS: BASOPHILS 0.5 % (0.0-2.0); HEMOGLOBIN 7.9 gm/dL (12.0-15.0)
[2017-02-25 05:20] LABS: ABSOLUTE NEUTROPHILS 11.7 thou/uL (1.4-8.2); EOSINOPHILS 2.6 % (0.0-3.0); HEMATOCRIT 23.7 % (37.0-47.0); LYMPHOCYTES 3.6 % (24.0-44.0); MCH 30.5 pg (26.0-34.0); MCHC 33.4 g/dL (28.0-37.0); MCV 91.3 fL (80.0-100.0); MONOCYTES 4.9 % (1.0-8.0); POLYS 88.4 % (36.0-66.0); RBC 2.59 mil/uL (4.20-5.00); RDW 16.3 % (10.5-14.5); WBC 13.2 thou/uL (4.0-11.0)
[2017-02-25 05:25] LABS: ALBUMIN 1.6 g/dL (3.4-5.0); CALCIUM 7.2 mg/dL (8.5-10.1); CREATININE 0.4 mg/dL (0.6-1.0); POTASSIUM 3.6 mmol/L (3.5-5.1); TOTAL BILIRUBIN 0.6 mg/dL (<0.1-1.0); TOTAL PROTEIN 4.7 g/dL (6.4-8.2)
[2017-02-25 06:08] LABS: ANISOCYTOSIS 1+; PLATELET COUNT 45 thou/uL (150-400); PLATELET ESTIMATE DECREASED; POLYCHROMASIA 2+
[2017-02-25 06:09] LABS: TOXIC GRANULATION 1+
[2017-02-25 18:31] LABS: BE(vivo) 7.5 mmol/L (-2 to +3); HCO3 30.7 mmol/L (22.0-26.0); PCO2 37.6 mmHg (35.0-45.0); sO2 98.1 % (92.0-98.0)
[2017-02-26] VITALS (49 sets, daily range): BP systolic 85–103; BP diastolic 47–75
[2017-02-26 05:52] LABS: HEMOGLOBIN 6.8 gm/dL (12.0-15.0); MCHC 34.2 g/dL (28.0-37.0); MONOCYTES 6.4 % (1.0-8.0); RBC 2.19 mil/uL (4.20-5.00)
[2017-02-26 05:55] LABS: ABSOLUTE NEUTROPHILS 9.3 thou/uL (1.4-8.2); BASOPHILS 0.4 % (0.0-2.0); EOSINOPHILS 1.2 % (0.0-3.0); LYMPHOCYTES 4.4 % (24.0-44.0); MCH 31.2 pg (26.0-34.0); MCV 91.2 fL (80.0-100.0); PLATELET COUNT 70 thou/uL (150-400); POLYS 87.6 % (36.0-66.0); RDW 16.4 % (10.5-14.5); WBC 10.6 thou/uL (4.0-11.0)
[2017-02-26 06:05] LABS: ALBUMIN 1.6 g/dL (3.4-5.0); CALCIUM 7.4 mg/dL (8.5-10.1); CREATININE 0.8 mg/dL (0.6-1.0); MAGNESIUM 1.8 mg/dL (1.8-2.4); PHOSPHORUS 1.8 mg/dL (2.5-4.9); POTASSIUM 3.3 mmol/L (3.5-5.1); TOTAL BILIRUBIN 0.5 mg/dL (<0.1-1.0); TOTAL PROTEIN 4.8 g/dL (6.4-8.2)
[2017-02-26 09:24] LABS: PCO2 42.9 mmHg (35.0-45.0); PO2 91.4 mmHg (80.0-100.0); pH 7.491 (7.360-7.450); sO2 97.5 % (92.0-98.0)
[2017-02-26 18:23] LABS: HEMATOCRIT 23.2 % (37.0-47.0); MCH 30.5 pg (26.0-34.0); MCHC 34.6 g/dL (28.0-37.0); MCV 88.1 fL (80.0-100.0); RBC 2.63 mil/uL (4.20-5.00); RDW 16.8 % (10.5-14.5); WBC 9.9 thou/uL (4.0-11.0)
[2017-02-27] VITALS (27 sets, daily range): BP systolic 92–115; BP diastolic 40–69
[2017-02-27 05:47] LABS: ABSOLUTE NEUTROPHILS 7.8 thou/uL (1.4-8.2); BASOPHILS 0.3 % (0.0-2.0); HEMATOCRIT 23.2 % (37.0-47.0); HEMOGLOBIN 7.9 gm/dL (12.0-15.0); LYMPHOCYTES 5.3 % (24.0-44.0); MCH 30.3 pg (26.0-34.0); MCHC 34.1 g/dL (28.0-37.0); MONOCYTES 7.8 % (1.0-8.0); PLATELET COUNT 120 thou/uL (150-400); POLYS 84.6 % (36.0-66.0); RBC 2.61 mil/uL (4.20-5.00); RDW 17.1 % (10.5-14.5); WBC 9.3 thou/uL (4.0-11.0)
[2017-02-27 06:05] LABS: ALBUMIN 1.6 g/dL (3.4-5.0); CALCIUM 6.5 mg/dL (8.5-10.1); MAGNESIUM 1.7 mg/dL (1.8-2.4); POTASSIUM 3.5 mmol/L (3.5-5.1); TOTAL BILIRUBIN 0.5 mg/dL (<0.1-1.0); TOTAL PROTEIN 5.1 g/dL (6.4-8.2)
[2017-02-27 06:06] LABS: CREATININE 1.8 mg/dL (0.6-1.0)
[2017-02-28] VITALS (24 sets, daily range): BP systolic 84–109; BP diastolic 43–69
[2017-02-28 05:39] LABS: HEMOGLOBIN 7.7 gm/dL (12.0-15.0); MCH 29.9 pg (26.0-34.0); MCHC 33.7 g/dL (28.0-37.0); MCV 88.7 fL (80.0-100.0); RBC 2.59 mil/uL (4.20-5.00); RDW 17.2 % (10.5-14.5); WBC 7.9 thou/uL (4.0-11.0)
[2017-02-28 05:55] LABS: ALBUMIN 1.6 g/dL (3.4-5.0); CALCIUM 6.3 mg/dL (8.5-10.1); CREATININE 2.2 mg/dL (0.6-1.0); POTASSIUM 3.4 mmol/L (3.5-5.1); TOTAL BILIRUBIN 0.5 mg/dL (<0.1-1.0); TOTAL PROTEIN 5.1 g/dL (6.4-8.2)
[2017-03-01] VITALS (22 sets, daily range): BP systolic 82–110; BP diastolic 49–74
[2017-03-01 05:48] LABS: HEMATOCRIT 22.9 % (37.0-47.0); HEMOGLOBIN 7.7 gm/dL (12.0-15.0); MCH 29.8 pg (26.0-34.0); MCHC 33.6 g/dL (28.0-37.0); MCV 88.7 fL (80.0-100.0); RBC 2.58 mil/uL (4.20-5.00); RDW 16.3 % (10.5-14.5); WBC 7.2 thou/uL (4.0-11.0)
[2017-03-01 06:02] LABS: ALBUMIN 1.6 g/dL (3.4-5.0); CREATININE 2.3 mg/dL (0.6-1.0); MAGNESIUM 2.4 mg/dL (1.8-2.4); PHOSPHORUS 3.5 mg/dL (2.5-4.9); POTASSIUM 3.9 mmol/L (3.5-5.1); TOTAL BILIRUBIN 0.5 mg/dL (<0.1-1.0); TOTAL PROTEIN 5.1 g/dL (6.4-8.2)
[2017-03-02] VITALS (25 sets, daily range): BP systolic 75–101; BP diastolic 34–75
[2017-03-02 06:22] LABS: HEMATOCRIT 23.4 % (37.0-47.0); HEMOGLOBIN 7.8 gm/dL (12.0-15.0); MCH 29.7 pg (26.0-34.0); MCHC 33.5 g/dL (28.0-37.0); MCV 88.8 fL (80.0-100.0); RBC 2.63 mil/uL (4.20-5.00); RDW 16.1 % (10.5-14.5); WBC 6.9 thou/uL (4.0-11.0)
[2017-03-02 06:32] LABS: ALBUMIN 1.7 g/dL (3.4-5.0); CREATININE 2.2 mg/dL (0.6-1.0); PHOSPHORUS 2.9 mg/dL (2.5-4.9); POTASSIUM 3.5 mmol/L (3.5-5.1)
[2017-03-02 06:35] LABS: CALCIUM 5.9 mg/dL (8.5-10.1)
[2017-03-03 00:01] VITALS: BP 92/54
[2017-03-03 01:04] VITALS: BP 92/54
[2017-03-03 03:45] LABS: ALBUMIN 1.7 g/dL (3.4-5.0); CALCIUM 6.1 mg/dL (8.5-10.1); CREATININE 2.3 mg/dL (0.6-1.0); PHOSPHORUS 3.4 mg/dL (2.5-4.9); POTASSIUM 3.3 mmol/L (3.5-5.1)
[2017-03-03 04:01] VITALS: BP 82/62
[2017-03-03 08:00] VITALS: BP 86/56
[2017-03-03] MEDS ORDERED: TOPROL XL25 MG PO (10:36)
[2017-03-03] MEDS ORDERED: HEPARIN SO1000 UNIT/ IV PUSH (10:36)
[2017-03-03] MEDS ORDERED: PACERONE 200 M200 M1 PO ×2 (10:36)
[2017-03-03 11:26] VITALS: BP 90/50
== END 2017-03-03 13:43 | DRG 870 ==
LOC: ER 12:39 → ICU 16:01 → EROBS 16:01 → ICU 21:11 → 2N 03-03 10:21
PROVIDERS: Emergency Medicine; Hospitalist; Internal Medicine; Internal Medicine Endocrinology, Diabetes & Metabolism; Internal Medicine Hematology & Oncology; Internal Medicine Nephrology; Internal Medicine Pulmonary Disease
PROC: 5A1955Z Respiratory Ventilation, Greater than 96 Consecutive Hours (ICD-10-PCS; principal; 2017-02-19)
PROC: 02HV33Z Insertion of Infusion Device into Superior Vena Cava, Percutaneous Approach (ICD-10-PCS; 2017-02-19)
PROC: 5A1D90Z Performance of Urinary Filtration, Continuous, Greater than 18 hours Per Day (ICD-10-PCS; 2017-02-19)
PROC: B548ZZA Ultrasonography of Superior Vena Cava, Guidance (ICD-10-PCS; 2017-02-19)
PROC: 5A1D90Z Performance of Urinary Filtration, Continuous, Greater than 18 hours Per Day (ICD-10-PCS; 2017-02-20)
PROC: 5A1D90Z Performance of Urinary Filtration, Continuous, Greater than 18 hours Per Day (ICD-10-PCS; 2017-02-21)
PROC: 5A1D90Z Performance of Urinary Filtration, Continuous, Greater than 18 hours Per Day (ICD-10-PCS; 2017-02-22)
PROC: 5A1D90Z Performance of Urinary Filtration, Continuous, Greater than 18 hours Per Day (ICD-10-PCS; 2017-02-23)
PROC: 5A1D90Z Performance of Urinary Filtration, Continuous, Greater than 18 hours Per Day (ICD-10-PCS; 2017-02-25)
PROC: 30233N1 Transfusion of Nonautologous Red Blood Cells into Peripheral Vein, Percutaneous Approach (ICD-10-PCS; 2017-02-26)
PROC: 02PYX3Z Removal of Infusion Device from Great Vessel, External Approach (ICD-10-PCS; 2017-03-02)
DX: A41.51 Sepsis due to Escherichia coli [E. coli] (principal); R65.21 Severe sepsis with septic shock; J96.01 Acute respiratory failure with hypoxia; J18.1 Lobar pneumonia, unspecified organism; E43 Unspecified severe protein-calorie malnutrition; N17.9 Acute kidney failure, unspecified; N39.0 Urinary tract infection, site not specified; N12 Tubulo-interstitial nephritis, not specified as acute or chronic; I42.9 Cardiomyopathy, unspecified; N13.1 Hydronephrosis with ureteral stricture, not elsewhere classified; E87.1 Hypo-osmolality and hyponatremia; I82.621 Acute embolism and thrombosis of deep veins of right upper extremity; I47.2 Ventricular tachycardia; Z96.641 Presence of right artificial hip joint; R74.0 Nonspecific elevation of levels of transaminase and lactic acid dehydrogenase [LDH]; E03.9 Hypothyroidism, unspecified; I11.0 Hypertensive heart disease with heart failure; M81.0 Age-related osteoporosis without current pathological fracture; Z90.710 Acquired absence of both cervix and uterus; I95.9 Hypotension, unspecified; E86.0 Dehydration; E66.9 Obesity, unspecified; Z60.2 Problems related to living alone; E87.5 Hyperkalemia; N28.9 Disorder of kidney and ureter, unspecified; I49.9 Cardiac arrhythmia, unspecified; E83.42 Hypomagnesemia; E83.39 Other disorders of phosphorus metabolism; R73.9 Hyperglycemia, unspecified; D69.6 Thrombocytopenia, unspecified; L60.8 Other nail disorders; D64.9 Anemia, unspecified; I50.9 Heart failure, unspecified; Z90.49 Acquired absence of other specified parts of digestive tract; Z68.35 Body mass index [BMI] 35.0-35.9, adult; Z79.899 Other long term (current) drug therapy; Z82.49 Family history of ischemic heart disease and other diseases of the circulatory system
CPT/HCPCS: 10203; 27000; 32110

== ENCOUNTER 2017-03-25 12:43 | Inpatient (IN) | payer OTHER ==
[~2017-03-25] VITALS: Ht 165.1 cm; Wt 74.7 kg
--- NOTE | ~2017-03-25 | HC ---
[facility] [place] [address] CONSULTATION Name: TRAVIS FISCHER Room #: 438-P ADM IN M.R.#: [id number] Admission: 03/25/17 Attend Phys: Adrian Lao DO Discharge: Date of : 43 Report #: [id number] THIS REPORT FOR: //name// CC: FAM unknown Adrian Lao DATE OF SERVICE: 03/26/2017 CHIEF COMPLAINT: Finger and toe necrosis. HISTORY OF PRESENT ILLNESS: This is a 71-year-old female patient with whom I am familiar from recent hospitalization. Several weeks ago in February 2017, she had significant septic shock, required significant pressor support and developed necrosis of the tips of her fingers and toes. She has been readmitted with kidney stone issues, and I have been asked to see her with regard to wound care. PAST MEDICAL HISTORY: Prior history of acute kidney injury, congestive heart failure, pneumonia, sepsis and urinary tract infection. ALLERGIES: None. MEDICATIONS: Include amiodarone, metoprolol, cefpodoxime, Dulcolax, Bentyl, Ultram, Tums, vitamin D, Singulair, MiraLax, fexofenadine, Nasonex, Synthroid, omeprazole, Restasis. SOCIAL HISTORY: Negative for alcohol or tobacco use. FAMILY HISTORY: Positive for hypertension. REVIEW OF SYSTEMS: CONSTITUTIONAL: The patient denies fever, chills or weight loss. NEUROLOGICAL: The patient denies focal weakness, numbness, tingling. EYES: The patient denies visual changes, redness or drainage. ENT: The patient denies earache, nasal drainage or sore throat. CARDIOVASCULAR: The patient denies chest pain, palpitations or diaphoresis. PULMONARY: The patient denies cough or shortness of breath. GASTROINTESTINAL: The patient denies nausea, diarrhea or abdominal pain. ORTHOPEDIC: The patient does note necrosis of the tips of her fingers and toes. Denies significant pain in this area at this time. Other systems in a 14-point review of systems are negative. PHYSICAL EXAMINATION: CURRENT VITAL SIGNS: Include pulse 77, respirations 20, blood pressure 99/58, temperature 98.1. GENERAL: This is a chronically ill-appearing female patient, appears to be in no distress. [address] [address] CONSULTATION Name: TRAVIS FISCHER Room #: 438- ADM IN M.R.#: [id number] Admission: 03/25/17 Attend Phys: Adrian Lao DO Discharge: Date of : 43 Report #: [id number] HEENT: Head normocephalic. Nose and throat clear. NECK: Supple. LUNGS: Clear. HEART: Regular. ABDOMEN: Soft, bowel sounds present. BACK: Demonstrates what appears to be a nephrostomy tube on the left side. EXTREMITIES: Demonstrate easily palpable pulses. She has dry gangrene on the tips of most of her fingers, although she has sparing of most of her thumbs and both fifth digits. There is pretty good demarcation in the fingertips. Examination of the toes demonstrates what appears to be some superficial eschar, although I suspect that the toes remain viable. LABORATORY DATA: Include sodium 144, potassium 4.4, chloride 110, CO2 of 26, BUN 22, creatinine 1.6, albumin is low at 1.7. CLINICAL IMPRESSION: 1. Dry gangrene of the tips of the fingers following severe sepsis requiring pressor support. 2. Acute kidney injury. 3. Renal calculus will recommendation of motion. 4. Severe protein calorie malnutrition. RECOMMENDATIONS: At this point in time, I think it would be appropriate to have surgical debridement of the tips of the involved fingers. Her toes; however, I think will likely survive and be viable. I will recommend topical Betadine to the eschar on the toes. I think it will peel off in time and I do not feel that she needs active debridement. Currently, she will need aggressive nutritional support to support wound healing. Physical therapy, occupational therapy following surgery would be also very appropriate, and I appreciate being asked to see her in consultation. <ELECTRONICALLY SIGNED> By: Pedro Santillan MD 03/27/17 1356 1824 0329 Pedro Santillan MD /nt
--- NOTE | ~2017-03-25 | HC ---
[facility] [place] [address] CONSULTATION Name: TRAVIS FISCHER Room #: 438-P ADM IN M.R.#: [id number] Admission: 03/25/17 Attend Phys: Adrian Lao DO Discharge: Date of : 43 Report #: [id number] THIS REPORT FOR: //name// CC: FAM unknown Adrian Lao REASON FOR CONSULTATION: Acute kidney injury on top of chronic kidney disease. HISTORY OF PRESENT ILLNESS: The patient is very well known to me. She is a 71-year-old who had been in the hospital in the early part of February. Her hospital course was very complicated. She had normal kidney function to start with. She was visiting family members here in [place] and started to get sick with left flank pain. She was known to have history of kidney stones. She presented to the emergency room where she was found to have an acute kidney injury with septic shock because of an obstructive left-sided stone. She ended up being in the intensive care unit for an extended period of time. Her hospital ICU course was complicated by respiratory failure, septic shock, thrombocytopenia, atrial fibrillation, severe acidosis, and acute kidney injury requiring hemodialysis. She was on very high doses of pressors. She required a left-sided nephrostomy tube. She ended up with an ischemic digits of both upper extremities due to the pressors. She recovered nicely from all the above-mentioned comorbid conditions and was transferred to [facility] facility for rehabilitation. She stayed there for some time and she came back yesterday to be evaluated for an amputation of her ischemic digits. She still has her left nephrostomy. I am being consulted to manage her kidney related issues. She feels okay; however, she reported to occasional weakness. She is not up to speed yet on her rehabilitation efforts. On presentation yesterday, her creatinine was 1.6, which is around the baseline that she left with from [facility]. However, her baseline seems to be around 1.0 when she came into the hospital. PAST MEDICAL HISTORY: 1. Hypothyroidism. 2. Tonsillectomy. 3. Appendectomy. 4. Tubal ligation. 5. Hysterectomy. 6. Abdominoplasty. 7. Cholecystectomy. 8. Left shoulder surgery. 9. Right shoulder surgery. 10. Lumpectomy. 11. Nephrolithotomy. 12. Total hip replacement. 13. Skin cancer. 14. Atrial fibrillation. 15. Septic shock. [address] [address] CONSULTATION Name: TRAVIS FISCHER Room #: 438-P [facility] IN .R.#: [id number] Admission: 03/25/17 Attend Phys: Adrian Lao DO Discharge: Date of : 43 Report #: [id number] 16. Respiratory failure. 17. Acute kidney injury. 18. Hemodialysis dependence for some time. FAMILY HISTORY: Nonsignificant. MEDICATIONS: 1. . 2. Tramadol. 3. Vitamin D. 4. Metoprolol. 5. Levothyroxine. 6. Aspirin. SOCIAL HISTORY: She was at the [facility] facility. No drug or alcohol abuse. ALLERGIES: None. REVIEW OF SYSTEMS: GENERAL: Significant for weakness. She is still not up to speed as I have stated in her rehab efforts, she is utilizing a wheelchair. PULMONARY: No cough or hemoptysis. CARDIOVASCULAR: No chest pain or palpitation. GASTROINTESTINAL: Loss of appetite, but no nausea or vomiting. GENITOURINARY: Plenty of urine through the Al catheter and the left-sided nephrostomy. SKIN: Dry gangrene of both hands sparing the left-sided pink and thumb finger. PHYSICAL EXAMINATION: GENERAL: Alert, oriented, in no apparent distress. VITAL SIGNS: Blood pressure 89/53. HEAD AND NECK: No jugular venous distention, no bruit, no thyromegaly. CHEST: Clear to auscultation bilaterally. CARDIOVASCULAR: Regular with no rub. ABDOMEN: Soft, nontender with no hepatosplenomegaly. Left-sided nephrostomy tube present. LOWER EXTREMITIES: No edema. UPPER EXTREMITIES: Ischemic digits with dry gangrene involving all fingers except the left little and thumb finger. LABORATORY VALUES: Reviewed. Hemoglobin 8.4, BUN 22, creatinine 1.6. ASSESSMENT, IMPRESSION, AND PLAN: 1. Acute kidney injury. 2. Chronic kidney disease. 3. Dry [place] [address] CONSULTATION Name: TRAVIS FISCHER Room #: 438-P ADM IN M.R.#: [id number] Admission: 03/25/17 Attend Phys: Adrian Lao DO Discharge: Date of : 43 Report #: [id number] 4. Hypothyroidism. 5. Status post left nephrostomy tube for an obstructive stone complicated by septic shock, respiratory failure, atrial fibrillation, thrombocytopenia. 6. She seems to be stable from the renal side. Plans by the urology noted for a scan and a KUB to have an ultimate surgical plans for her stone. 7. Orthopedic note reviewed. 8. She is running a low blood pressure and we will have to watch carefully given the significant output from the left nephrostomy tube and the urine output. I will start on gentle hydration for today and evaluate in the next 24 hours. 8. Recheck labs in the morning. 9. Avoid nephrotoxins. <ELECTRONICALLY SIGNED> By: Fernanda Trevizo MD 03/28/17 1409 0816 1134 Fernanda Trevizo MD /nt
--- NOTE | ~2017-03-25 | S ---
[facility] [place] [address] SURGICAL PATH RPT PROCEDURE Name: MAKEDA FISCHER Room #: 438-P ADM IN M.R.#: [id number] Admission: 03/25/17 Date of : 43 Discharge: Report #: [id number] Path Case #: [id number] PATHOLOGY REPORT COLLECTION DATE: 03/28/2017 RECEIVED DATE: 03/29/2017 SUBMITTING PHYS: Dr. Ifrah Warner OTHER PHYS: Dr. Adrian Lao SPECIMEN(S) RECEIVED: A.Multiple digits - right hand B.Multiple digits - left hand * * * * * * * * * * * * FINAL DIAGNOSIS: A. Multiple digits - right hand, amputation: - Marked acute inflammation associated with surface ulceration and gangrenous necrosis consistent with the provided history of multiple gangrenous digits. - Viable bone identified at inked margins with regenerative changes. B. Multiple digits - left hand, amputation: - Marked acute inflammation associated with surface ulceration and gangrenous necrosis consistent with the provided history of multiple gangrenous digits. - Viable bone identified at inked margins with regenerative changes. (IUV:mml; 03/30/2017) PATHOLOGIST: Katia Proctor M.D. REPORT ELECTRONICALLY SIGNED BY: Katia Proctor M.D. DATE/TIME: 03/30/2017 15:42 * * * * * * * * * * * * GROSS PATHOLOGY: A. The specimen is received in formalin labeled "Makeda Fiscehr, multiple digits right hand". Received are five amputated digits ranging in size from 2.4 x 2.4 x 1.8 to 5.2 x 2.1 x 2.0 cm in greatest dimensions. 4 of the bone margins are transected and the fifth toe margin is smooth and concave in appearance. All bone and soft tissue margins are inked black. The epidermal surfaces are predominantly blackened and sloughing in appearance, consistent with gangrene. The nails are present, are artificial, and have been painted pink. A personal banking representative section through each bone margin is submitted in cassettes A1 through A5, following decalcification. B. The specimen is received in formalin labeled "Makeda Fischer, multiple digits left hand". Received are three amputated digits ranging in size from 3.5 x 2.1 x 1.6 to 3.8 x 1.8 x 1.[address] [address] SURGICAL PATH RPT PROCEDURE Name: MAKEDA FISCHER Room #: 438-P [facility] IN .R.#: [id number] Admission: 03/25/17 Date of : 43 Discharge: Report #: [id number] Path Case #: [id number] greatest dimensions. All of the bone margins are blunt in appearance, consistent with transection. The bone and soft tissue margins are inked black. The epidermal surfaces are predominantly blackened and sloughing in appearance, consistent with gangrene. The nails are present, are artificial, and have been painted pink. Nuclear Powerplant Mechanic section through each bone margin is submitted in cassettes B1 through B3, following decalcification. (CAA; 03/29/2017) CLINICAL HISTORY: Multiple gangrenous digits, right and left hand INITIAL CPT CODE(S): A; 13799, 41595 B; 76899, 14776 Professional services performed by [facility] at [facility] [address], [place] [address] Technical services performed by [facility] at [address] [place] [address], [address], [place] [address]. [facility] [address] [place] [address] PHONE: [phone] DIRECTOR: Benson Lazo M.D. * * * END OF REPORT * * *
--- NOTE | ~2017-03-25 | O ---
[facility] [place] [address] OPERATIVE REPORT Name: AMADOTRAVIS Room #: 438-P [facility] IN M.R.#: [id number] Admission: 03/25/17 Attend Phys: Adrian Lao DO Discharge: 04/01/17 Date of : 43 Report #: [id number] THIS REPORT FOR: //name// CC: FAM unknown Adrian Lao PREOPERATIVE DIAGNOSES: 1. Right thumb dry gangrene. 2. Right index finger dry gangrene. 3. Right long finger dry gangrene. 4. Right ring finger dry gangrene. 5. Right small finger dry gangrene. 6. Left index finger dry gangrene. 7. Left long finger dry gangrene. 8. Left ring finger dry gangrene. POSTOPERATIVE DIAGNOSES: 1. Right thumb dry gangrene. 2. Right index finger dry gangrene. 3. Right long finger dry gangrene. 4. Right ring finger dry gangrene. 5. Right small finger dry gangrene. 6. Left index finger dry gangrene. 7. Left long finger dry gangrene. 8. Left ring finger dry gangrene. PROCEDURE PERFORMED: 1. Partial amputation through P2, right thumb. 2. Partial amputation through P2, right index finger. 3. Partial amputation through P2, right long finger. 4. Partial amputation through P1, right ring finger. 5. Partial amputation, right small finger through P2. 6. Left partial amputation index finger through P2. 7. Left amputation, long finger through P2. 8. Left amputation, ring finger through P2. SURGEON: Ifrah Warner MD ANESTHESIA: General mask anesthesia. ESTIMATED BLOOD LOSS: Approximately 5 mL. TOURNIQUET TIME: Right 70 minutes, left 36 minutes. SPECIMENS: Were sent to pathology. COMPLICATIONS: None. [address] [address] OPERATIVE REPORT Name: AMADOTRAVIS Room #: 438-P [facility] IN [facility].#: [id number] Admission: 03/25/17 Attend Phys: Adrian Lao DO Discharge: 04/01/17 Date of : 44 Report #: [id number] CONDITION: Stable. DISPOSITION: Recovery room. INDICATIONS: The patient is a 71-year-old female with the above-mentioned diagnoses. She had well-demarcated dry gangrene to the above-mentioned digits and elected for surgical treatment. We had previously discussed with the patient as well as son and daughter the diagnosis as well as treatment options, the recommendation for amputation. We discussed that any black portion would be removed and the digits would be shortened slightly more than this in order to facilitate wound closure. I expressed my desire to maintain appropriate length for improved functionality while removing enough to allow the wounds to heal appropriately. The risks, benefits, alternatives, complications were discussed including but not limited to infection, wound healing problems, pain, stump pain and scar tissue tenderness. Informed consent was obtained. The correct extremities were identified and labeled by myself after verbal confirmation of patient as well as visual confirmation and signed informed consent. DESCRIPTION OF PROCEDURE: The patient brought to the OR and placed in supine position. Both upper extremities were sterilely prepped and draped in usual fashion. A final timeout was taken to verify correct patient, operative procedure, operative site, all concurred. First attention was placed to the right. The right upper extremity was elevated, exsanguinated and the tourniquet inflated. Next, on each digit the necrotic tissue was removed sharply with a 15 blade. Specifically on the thumb, the incision dorsally was just proximal to the proximal nail fold. Careful attention was placed to removing any nail tissue. On each incision, the tendons were transected. Periosteal elevator was used to elevate the tissue off the bone proximally and P2 was cut with a micro oscillating saw. On the ring finger, a cut was made within the middle portion of P1. The wounds were all thoroughly irrigated. Each neurovascular bundle was identified and tension was applied to the nerve and the nerve was sharply transected to avoid postop neuroma pain and the wounds were then closed. Again, careful attention was made to maintaining as much length as possible in this patient requiring multiple amputations and so where the skin was thick enough, dorsal skin was brought distally. The wounds were closed with a combination of 4-0 and 5-0 nylon. Any dog ears were removed using a 15 blade in order to improve the patient's appearance. Prior to performing closure the wounds were thoroughly irrigated. A digital nerve block was done with a total of approximately 10 mL of 0.25% Marcaine at the base of the digits. The tourniquet was deflated. The wounds were then dressed with Adaptic and sterile gauze. She was placed in a bulky mild compressive dressing. Next, attention was placed to the left. Left upper extremity was elevated, exsanguinated and tourniquet inflated. Of note, all these procedures were done with a 3.5 times loupe magnification. All necrotic tissue was removed. Tendons [address] [address] OPERATIVE REPORT Name: TRAVIS FISCHER Room #: 438-P [facility] IN M.R.#: [id number] Admission: 03/25/17 Attend Phys: Adrian Lao DO Discharge: 04/01/17 Date of : 43 Report #: [id number] were incised. Periosteum was elevated and the P2 was cut with an oscillating saw. The neurovascular bundles were identified on each side of each digit and were sharply transected proximally to avoid postoperative pain. The wounds were thoroughly irrigated. The skin was closed with 4-0 nylon suture, taking care to excise dog ear tissue when appropriate to improve the appearance. A digital nerve block was done with approximately 10 mL of 0.25% Marcaine divided at the bases of the digits. The tourniquet was deflated. The fingers were dressed with Adaptic and Xeroform and a bulky mildly compressive dressing. All fingers were pink with brisk capillary refill at the conclusion of the case after deflation of tourniquet. All sponge, needle counts were correct. The patient was transferred to postoperative recovery room in stable condition. <ELECTRONICALLY SIGNED> By: Ifrah Warner MD 04/08/17 1525 1354 1535 Ifrah Warner MD /nt
--- NOTE | ~2017-03-25 | HC ---
[facility] [place] [address] CONSULTATION Name: TRAVIS FISCHER Room #: 438-P [facility] IN M.R.#: [id number] Admission: 03/25/17 Attend Phys: Adrian Lao DO Discharge: 04/01/17 Date of : 44 Report #: [id number] THIS REPORT FOR: //name// CC: FAM unknown Adrian Lao DATE OF SERVICE: 03/26/2017 HISTORY OF PRESENT ILLNESS: The patient is a 71-year-old white female who had a 2-week hospitalization at [facility] from 02/17/2017 to 03/03/2017, with septic shock requiring intubation full support. She was noted to have a left hydronephrosis with urolithiasis. This was thought to be the source of sepsis at E. coli grew out from the blood cultures. Interventional Radiology was consulted and a percutaneous nephrostomy tube was done. She remained doing critical care condition. She developed dry gangrene of multiple fingers and toes. She was discharged to [facility] where she gradually progressed. Her distal finger and toe necrosis has demarcated. While there, she received a Darco shoes and started a very limited short distance ambulation within the parallel bars. She has now been readmitted to [facility] and has been evaluated by Urology regarding the left proximal ureteral stone and orthopedics regarding the dry gangrene. We are seeing her in rehabilitation medicine consultation. PAST MEDICAL HISTORY: Includes a prior right hip replacement in 2012. She has had a couple of dislocations having to be surgically repaired. She notes that right hip is not that strong. She has also had history of CHF and UTI. ALLERGIES: No known drug allergies. FAMILY HISTORY: Hypertension. HABITS: No history of alcohol or tobacco abuse is noted. SOCIAL HISTORY: She lives in [place], [facility]. There is a daughter who lives up in [place] as well. The patient was visiting her son in town here when she had the acute hospitalization. She notes that she and her children have 2 story houses. She has been living alone, did not utilize gait aids premorbidly and was a community ambulator. REVIEW OF SYSTEMS: No current complaints of chest pain, shortness of breath, abdominal discomfort. She notes that the right hip has always been weak for her. She does have some distal finger and toe discomfort as expected. PHYSICAL EXAMINATION: GENERAL: A 71-year-old white female in no obvious distress. VITAL SIGNS: Last recorded temperature 98, pulse 76, respirations 20, blood [facility] [address] [place] [address] CONSULTATION Name: TRAVIS FISCHER Room #: [address] [place] [address] [place] [facility].#: [id number] Admission: 03/25/17 Attend Phys: Adiran Lao DO Discharge: 04/01/17 Date of : 43 Report #: [id number] pressure is 92/53. The patient is alert, pleasant, oriented. HEENT: Appeared to be benign. NEUROLOGIC: Cranial nerves are grossly intact. Facies are symmetric. EXTREMITIES: She has functional range of motion of the upper extremities proximally. She has distal finger and thumb necrosis of all digits on the right hand and 3 digits on the left, 2, 3, and 4 with the thumb and small finger spared. As far as examination of the lower extremities, strength is probably a grade 3+ to 4-/5. No focal calf swelling. She has distal toe necrosis of her toes. ASSESSMENT: A 71-year-old white female with the following problem list: 1. Critical illness myopathy. 2. Dry gangrene, multiple fingers and toes; being evaluated by Orthopedics as these areas have demarcated. 3. Left hydronephrosis with ureterolithiasis with a nephrostomy tube. Urology is involved with procedural plans underway. 4. Prior history of right total hip replacement with dislocation x 2. 5. Acute renal insufficiency. 6. Congestive heart failure. 7. Recent severe septic shock. PLAN: Workup underway as far as surgical intervention by Urology and Orthopedics. Would anticipate she is going to need an acute in-hospital inpatient rehabilitation stay once this is completed. We will be glad to follow along with you regarding her rehab therapy needs as she further medically stabilizes. <ELECTRONICALLY SIGNED> By: Jono Good MD 04/06/17 1510 1309 0055 Jono Good MD /[facility]
--- NOTE | ~2017-03-25 | HC ---
[facility] [place] [address] CONSULTATION Name: TRAVIS FISCHER Room #: 438-P [facility] IN M.R.#: [id number] Admission: 03/25/17 Attend Phys: Adrian Lao DO Discharge: 04/01/17 Date of : 43 Report #: [id number] THIS REPORT FOR: //name// CC: FAM unknown Adrian Lao CHIEF COMPLAINT: Left ureteral stone and sepsis. HISTORY OF PRESENT ILLNESS: The patient is a delightful 71-year-old woman who is being seen today at the request of Dr. Lao for evaluation and management of a left proximal ureteral stone. She was hospitalized in February with sepsis. At that time, she was noted to have a left proximal ureteral stone, and a percutaneous nephrostomy tube was placed. She has recovered, but she has developed gangrene of multiple fingers and toes and is here for further evaluation and management and possibly amputation. ALLERGIES: None. ILLNESSES: Acute kidney injury, congestive heart failure, pneumonia, sepsis. MEDICATIONS: Include amiodarone 200 mg b.i.d., Toprol-XL 12.5 mg daily, aspirin. PAST SURGICAL HISTORY: Includes right hip replacement, nephrostomy tube placement. FAMILY HISTORY: Significant for hypertension. SOCIAL HISTORY: Nonsmoker, nondrinker. REVIEW OF SYSTEMS: She denies shortness of breath or chest pain. PHYSICAL EXAMINATION: GENERAL: She is a comfortable appearing woman, sitting up in bed. VITAL SIGNS: Temperature is 36.9, pulse 71, respirations 20, blood pressure 89/53. ABDOMEN: Soft, without masses. There is no respiratory distress. LABORATORY DATA: White count 7400, hemoglobin 8.4, hematocrit 25.4, platelets 326,000. Sodium 144, potassium 4.4, chloride 110, CO2 of 26, BUN 22, creatinine 1.6, calcium 8.5. IMPRESSION: Left proximal ureteral stone and left nephrostomy tube. PLAN: We will check a CT scan to be certain there have been no changes in stone location, and I will follow along. We will decide whether it is best to approach this antegrade via the nephrostomy site or retrograde via the urethra [facility] [address] [place] [address] CONSULTATION Name: TRAVIS FISCHER Room #: 438-P [facility] IN M.R.#: [id number] Admission: 03/25/17 Attend Phys: Adrian Lao DO Discharge: 04/01/17 Date of : 43 Report #: [id number] and the ureter. Final recommendations and timing will be based on the CT scan and in collaboration with the other physicians taking care of her. Thank you for allowing me to participate in her care. I will obtain a urine culture. <ELECTRONICALLY SIGNED> By: Jono Estrella MD 04/20/17 1018 0657 1107 Jono Estrella MD /nt
--- NOTE | ~2017-03-25 | HC ---
[facility] [place] [address] CONSULTATION Name: TRAVIS FISCHER Room #: 438-P [facility] IN M.R.#: [id number] Admission: 03/25/17 Attend Phys: Adrian Lao DO Discharge: 04/01/17 Date of : 43 Report #: [id number] THIS REPORT FOR: //name// CC: FAM unknown Adrian Lao DATE OF SERVICE: 03/26/2017 REASON FOR CONSULTATION: Necrotic fingers and toes. HISTORY OF PRESENT ILLNESS: The patient is a 71-year-old previously healthy patient who was admitted in mid February with sepsis. She was in septic shock, requiring intubation and full support. She subsequently has developed necrosis to her fingers and toes, and I have been consulted to evaluate for possible amputation. REVIEW OF SYSTEMS: MUSCULOSKELETAL: She reports a history of a right total hip arthroplasty with a history of multiple dislocations. NEUROLOGIC: Denies any significant numbness or tingling in her extremities. PAST MEDICAL HISTORY: Acute kidney injury, congestive heart failure, pneumonia, sepsis and history of urinary tract infection. ALLERGIES: SULFA AND OTHER ANTIBIOTICS. MEDICATIONS: The MAR was reviewed, which shows polyethylene glycol powder, multivitamin, Singulair, metoprolol, cholecalciferol, calcium carbonate, aspirin, pantoprazole, levothyroxine, cyclosporine, amiodarone, tramadol and acetaminophen. PAST SURGICAL HISTORY: Right total hip arthroplasty. SOCIAL HISTORY: She does not use any ambulatory aids. Lives in [place], but was here visiting her son. She has a son who lives here in [facility] and daughter who lives in [place]. Denies smoking, is right-hand dominant. LABORATORY DATA: Laboratory studies done on 03/25/2017 show white blood cell count 7.4, hemoglobin 8.4, hematocrit 25.4 and platelet count 326,000. Sodium is 144, chloride is 110 and creatinine is 1.6. PHYSICAL EXAMINATION: GENERAL: She is alert and oriented and interacts appropriately. She is a well-developed, well-nourished female in no acute distress. Her daughter is at her bedside. The patient has requested that I not go into significant detail regarding her amputations. I discussed that I will have to tell her a few [facility] [address] [place] [address] CONSULTATION Name: TRAVIS FISCHER Room #: 438-P [facility] IN .R.#: [id number] Admission: 03/25/17 Attend Phys: Adrian Lao DO Discharge: 04/01/17 Date of : 43 Report #: [id number] things for her to be able to sign the informed consent and can have even more detailed discussions with her children. VITAL SIGNS: Most recent vital signs show temperature 36.9, heart rate is 71, respiratory rate 20, blood pressure 89/53 and pulse oximetry is 95% on room air. EXTREMITIES: Examination of her right upper extremity, she has 1+ radial and 1+ ulnar pulse. She has dry gangrene to the distal aspects of all of her digits bearing from the PIP to the DIP joint levels. She has some stiffness at her PIP joints and the IP joint of the thumb as well as the MP joints. Otherwise, the skin is clean and dry. There are no signs of infection. Left upper extremity exam, she has 1+ radial and 1+ ulnar pulses. Sensation is intact. Sensation is intact on the right as well. She has dry necrosis to the tips of the index, long and ring extending from the DIP to the PIP joint, well depending on the digit. The thumb and small finger are completely spared. There are no signs of infection. On the left upper extremity, she has near full range of motion of the unaffected joints on her left hand. Bilateral lower extremity exam, the toes have diffuse patchy gangrene. She has 2+ dorsalis pedis pulses on both. She is able to wiggle her toes. There are no signs of infection. IMPRESSION AND PLAN: Dry gangrene that appears to be well demarcated on the bilateral upper extremities, sparing the left thumb and small fingers. I briefly discussed with the patient that any parts that are black will have to be removed, with a little bit more tissue in order to facilitate closure of the wound. I expressed that I will remove as much as I need to in order to have appropriate healing. However, I will leave as much length for function as possible. With regards to her feet, amputation of all the toes may not be required. We will continue to monitor this. I had a further discussion with the patient's daughter. We discussed that again I will have to take more length off than where the black edges in order to facilitate closure, and we will get started with occupational therapy today to work on range of motion of her joints in anticipation of the amputations. I understand the patient will need a surgery for her kidney at some point next week. I can perform surgery on her fingers on a more elective basis, so I will need input regarding the scheduling of the renal surgery and potential need for my surgery to be before or after that surgery. Please give me a call at my office, or I am on-call this weekend. Thank you very much for allowing me to participate in the care of this patient. <ELECTRONICALLY SIGNED> By: Ifrah Warner MD 04/08/17 1526 0756 1051 Ifrah Warner MD /nt
--- NOTE | ~2017-03-25 | O ---
[facility] [place] [address] OPERATIVE REPORT Name: TRAVIS FISCHER Room #: 438-P [facility] IN M.R.#: [id number] Admission: 03/25/17 Attend Phys: Adrian Lao DO Discharge: 04/01/17 Date of : 43 Report #: [id number] THIS REPORT FOR: //name// CC: Domenic Escoto MD FAM unknown Adrian Lao PREOPERATIVE DIAGNOSES: Left proximal ureteral stone. Recent sepsis. POSTOPERATIVE DIAGNOSES: Left proximal ureteral stone. Recent sepsis. PROCEDURE: Cystoscopy, left ureteroscopy with holmium laser ablation of left ureteral calculus with retrieval of stone fragments and placement of left nephroureteral indwelling stent. SURGEON: Jono Estrella MD. ANESTHESIA: General. INDICATIONS: The patient is a very pleasant 71-year-old woman who was recently hospitalized with E. coli sepsis. She developed a septic emboli resulting in gangrene of several digits. These have since been amputated. Her infection has been cleared. She has a left nephrostomy tube in place, and she is admitted for definitive management of the stone. I have discussed options of therapy including lithotripsy, antegrade and retrograde endoscopic approaches. She has opted for ureteroscopic manipulation. Risk of injury to the ureter and/or kidney has been discussed. Risk of open surgery as well as sepsis and bleeding have been discussed. Issues related to stent placement, stent removal were discussed. They understand complications. She and her family understand complications could occur, which may not have been foreseen or discussed. Risk of her hip dislocation was discussed. SURGICAL PROCEDURE: After obtaining informed consent, she was brought to the operating room, general anesthetic was administered. She was carefully placed in the lithotomy position. The right hip, which is simply elevated, but not externally rotated. She was prepped and draped in the lithotomy position. A timeout was performed. IV antibiotics were administered. Preliminary fluoroscopic images showed proper placement of left nephrostomy tube with a stone identified in the left lateral to the spinal column on the left side. The 21-Icelandic ACMI cystoscope was introduced. The bladder was smooth walled with no intrinsic mucosal lesions. Trigone and ureters were normal in configuration and location. 2.35 ZIPwire was replaced in the left proximal into the left kidney. I dilated the ureteral orifice to 15-Icelandic at 10 atmospheres using the 4-cm balloon. I then placed a 12 x 14-Icelandic 28 cm access sheath without difficulty up to the level of the stone. I placed a digital ureteroscope up to the stone. The stone was well visualized. I used a 272 micron laser fiber to break the stone into innumerable fragments. Many of the fragments were ended up in the [address] [address] OPERATIVE REPORT Name: TRAVIS FISCHER Room #: 438-P [facility] IN M.R.#: [id number] Admission: 03/25/17 Attend Phys: Adrian Lao DO Discharge: 04/01/17 Date of : 43 Report #: [id number] floor of the renal pelvis and were retrieved with a 1.9 Icelandic nitinol basket. There was really minimal bleeding. I examined the entire kidney in the proximal ureter. There were no other fragments which were able to be engaged with the basket because the fragments were indeed so small. I then withdrew the ureteroscope. I removed the access sheath and placed a 6-Icelandic x 26 cm contour stent, the proximal curls overlying the left kidney, the distal curl was in the bladder. She was then transferred to the recovery room where she arrived in stable condition. The findings were shared with the family, and indeed, the stent position was confirmed and a Al was placed without complications. <ELECTRONICALLY SIGNED> By: Jono Estrella MD 04/20/17 1018 1155 1326 Jono Estrella MD /nt
[~2017-03-25 12:43] MED LIST: ALLER-EASE180 MG PO; AMITRIPTYLINE H25 M2 PO; BAYER CHEWABLE81 MG PO; BENTYL 20 MG TA20 M1 PO; CENTRUM SILVER1 EAC4 PO; HEPARIN SO1000 UNIT/ IV PUSH; LEVSIN0.125 MG PO; MIRALAX17 GM PO; NASONEX17 GM NASAL; OMEPRAZOLE 20 M20 MG PO; PACERONE 200 M200 M1 PO; PRIMIDONE50 MG PO; RESTASIS1 EACH OPHTHALMIC; SINGULAIR 10 MG10 M1 PO; SYNTHROID50 MCG PO; TOPAMAX 25 MG T25 M1 PO; TOPROL XL25 MG PO; TUMS PO; VITAMIN D2000 UNIT PO; WELLBUTRIN XL150 MG PO
[2017-03-25 12:49] VITALS: BP 117/71
[2017-03-25] MEDS ORDERED: CEFPODOXIME PR200 M1 PO (14:01)
[2017-03-25] MEDS ORDERED: PROBIOTIC1 EAC2 PO (14:03)
[2017-03-25] MEDS ORDERED: ARTIFICIAL TEAR15 M1 OPHTHALMIC (14:05)
[2017-03-25] MEDS ORDERED: APAP650 PO (14:05)
[2017-03-25] MEDS ORDERED: BISACODYL SUPP10 MG RECTAL (14:09)
[2017-03-25] MEDS ORDERED: DIPHENHIST50 MG PO (14:10)
[2017-03-25] MEDS ORDERED: TRAMADOL 50 MG50 MG PO (14:16)
[2017-03-25] MEDS ORDERED: ULTRAM 50MG TAB50 MG PO (14:16)
[2017-03-25 15:43] LABS: EOSINOPHILS 6.4 % (0.0-3.0); HEMATOCRIT 25.4 % (37.0-47.0); HEMOGLOBIN 8.4 gm/dL (12.0-15.0); LYMPHOCYTES 16.9 % (24.0-44.0); MCH 30.4 pg (26.0-34.0); MCHC 33.1 g/dL (28.0-37.0); MCV 91.8 fL (80.0-100.0); MONOCYTES 6.3 % (1.0-8.0); PLATELET COUNT 326 thou/uL (150-400); POLYS 67.4 % (36.0-66.0); RBC 2.77 mil/uL (4.20-5.00); RDW 18.9 % (10.5-14.5); WBC 7.4 thou/uL (4.0-11.0)
[2017-03-25 15:55] LABS: CALCIUM 8.5 mg/dL (8.5-10.1); CREATININE 1.6 mg/dL (0.6-1.0); POTASSIUM 4.4 mmol/L (3.5-5.1)
[2017-03-25 16:00] VITALS: BP 116/62
[2017-03-25 19:10] VITALS: BP 108/58
[2017-03-26 00:35] VITALS: BP 91/60
[2017-03-26 04:43] VITALS: BP 89/53
[2017-03-26 09:02] VITALS: BP 92/53
[2017-03-26] MEDS ORDERED: FLONASE 0.05%50 MCG NASAL (09:33)
[2017-03-26 16:39] VITALS: BP 99/58
[2017-03-26 19:32] VITALS: BP 97/53
[2017-03-26] MEDS ORDERED: PROBIOTIC1 EAC2 PO (19:47)
[2017-03-27 03:31] VITALS: BP 89/46
[2017-03-27 06:23] LABS: ABSOLUTE NEUTROPHILS 5.2 thou/uL (1.4-8.2); BASOPHILS 2.9 % (0.0-2.0); EOSINOPHILS 7.3 % (0.0-3.0); HEMATOCRIT 24.5 % (37.0-47.0); HEMOGLOBIN 7.9 gm/dL (12.0-15.0); LYMPHOCYTES 17.1 % (24.0-44.0); MCH 30.1 pg (26.0-34.0); MCHC 32.1 g/dL (28.0-37.0); MCV 93.7 fL (80.0-100.0); MONOCYTES 7.1 % (1.0-8.0); PLATELET COUNT 296 thou/uL (150-400); POLYS 65.6 % (36.0-66.0); RBC 2.61 mil/uL (4.20-5.00); RDW 19.4 % (10.5-14.5)
[2017-03-27 06:42] LABS: ALBUMIN 2.2 g/dL (3.4-5.0); CALCIUM 8.2 mg/dL (8.5-10.1); CREATININE 1.6 mg/dL (0.6-1.0); POTASSIUM 4.3 mmol/L (3.5-5.1); TOTAL BILIRUBIN 0.3 mg/dL (<0.1-1.0); TOTAL PROTEIN 5.7 g/dL (6.4-8.2)
[2017-03-27 07:57] VITALS: BP 98/56
[2017-03-27 10:20] LABS: URINE BILIRUBIN NEGATIVE (Negative); URINE BLOOD 2+ (Negative); URINE CLARITY CLEAR; URINE COLOR YELLOW; URINE GLUCOSE-RANDOM* NEGATIVE (Negative); URINE KETONES NEGATIVE (Negative); URINE NITRITE-REFLEX NEGATIVE (Negative); URINE PROTEIN (DIPSTICK) TRACE (Negative); URINE SPECIFIC GRAVITY <= 1.005 (1.005-1.035); URINE UROBILINOGEN 0.2 E.U./dl (0.2-1.0)
[2017-03-27 10:21] LABS: URINE LEUKOCYTES-REFLEX 2+ (Negative)
[2017-03-27 10:49] LABS: BACTERIA-REFLEX 1-9 Few /HPF (None Seen); CASTS None Seen /LPF (None Seen); CRYSTALS None Seen /LPF (None Seen); SQUAMOUS 0-3 Few /LPF (0-3); URINE RBC 0-2 Rare /HPF (0-2); URINE WBC-REFLEX 6-15 Few /HPF (0-5)
[2017-03-27 15:58] LABS: INR 2.3; PROTIME 22.3 Seconds (9.3-11.4)
[2017-03-27 16:02] VITALS: BP 94/50
[2017-03-27 19:54] VITALS: BP 101/55
[2017-03-28] VITALS (10 sets, daily range): BP systolic 83–109; BP diastolic 42–56
[2017-03-28 06:04] LABS: ABSOLUTE NEUTROPHILS 4.7 thou/uL (1.4-8.2); BASOPHILS 2.6 % (0.0-2.0); EOSINOPHILS 8.1 % (0.0-3.0); HEMATOCRIT 23.4 % (37.0-47.0); HEMOGLOBIN 7.7 gm/dL (12.0-15.0); LYMPHOCYTES 17.2 % (24.0-44.0); MCH 30.5 pg (26.0-34.0); MCHC 32.9 g/dL (28.0-37.0); MCV 92.9 fL (80.0-100.0); MONOCYTES 7.7 % (1.0-8.0); PLATELET COUNT 269 thou/uL (150-400); POLYS 64.4 % (36.0-66.0); RBC 2.52 mil/uL (4.20-5.00); WBC 7.2 thou/uL (4.0-11.0)
[2017-03-28 06:24] LABS: CALCIUM 8.1 mg/dL (8.5-10.1); CREATININE 1.6 mg/dL (0.6-1.0); POTASSIUM 4.1 mmol/L (3.5-5.1)
[2017-03-29 04:19] VITALS: BP 92/48
[2017-03-29 05:24] LABS: ABSOLUTE NEUTROPHILS 7.6 thou/uL (1.4-8.2); BASOPHILS 0.2 % (0.0-2.0); HEMATOCRIT 23.1 % (37.0-47.0); HEMOGLOBIN 7.5 gm/dL (12.0-15.0); LYMPHOCYTES 8.8 % (24.0-44.0); MCH 30.6 pg (26.0-34.0); MCHC 32.7 g/dL (28.0-37.0); MCV 93.6 fL (80.0-100.0); MONOCYTES 3.9 % (1.0-8.0); PLATELET COUNT 274 thou/uL (150-400); POLYS 87.1 % (36.0-66.0); RBC 2.46 mil/uL (4.20-5.00); RDW 19.2 % (10.5-14.5); WBC 8.7 thou/uL (4.0-11.0)
[2017-03-29 05:40] LABS: CALCIUM 7.3 mg/dL (8.5-10.1); CREATININE 1.5 mg/dL (0.6-1.0); POTASSIUM 4.8 mmol/L (3.5-5.1)
[2017-03-29 07:30] VITALS: BP 91/57
[2017-03-29 15:45] VITALS: BP 97/53
[2017-03-29 20:17] VITALS: BP 99/54
[2017-03-30 04:10] VITALS: BP 96/45
[2017-03-30 07:50] VITALS: BP 97/49
[2017-03-30 16:00] VITALS: BP 91/50
[2017-03-30 20:00] VITALS: BP 98/58
[2017-03-31] VITALS (10 sets, daily range): BP systolic 95–111; BP diastolic 39–66
[2017-04-01 03:20] VITALS: BP 90/41
[2017-04-01 06:20] LABS: ALBUMIN 2.1 g/dL (3.4-5.0); CALCIUM 7.8 mg/dL (8.5-10.1); CREATININE 1.4 mg/dL (0.6-1.0); POTASSIUM 4.4 mmol/L (3.5-5.1)
[2017-04-01 08:04] VITALS: BP 99/49
[2017-04-01 08:23] VITALS: BP 99/49
[2017-04-01] MEDS ORDERED: NORVASC10 MG PO (11:30)
[2017-04-01] MEDS ORDERED: PERCOCET 10-321 EACH PO (11:30)
[2017-04-01] MEDS ORDERED: DURAGESIC25 MCG/HR TRANSDERM (11:30)
[2017-04-01] MEDS ORDERED: WELLBUTRIN XL150 MG PO (11:31)
[2017-04-01] MEDS ORDERED: ENOXAPARIN40 MG/0.1 SUBQ (11:40)
[2017-04-01 12:02] VITALS: BP 102/51
[2017-04-01 16:30] VITALS: BP 97/59
[2017-04-01 19:54] VITALS: BP 104/53
== END 2017-04-01 23:34 | DRG 853 ==
LOC: 4S 12:43
PROVIDERS: Family Medicine; Hospitalist; Specialist
PROC: 0X6P0Z0 Detachment at Left Index Finger, Complete, Open Approach (ICD-10-PCS; principal; 2017-03-25)
PROC: 0X6N0Z0 Detachment at Right Index Finger, Complete, Open Approach (ICD-10-PCS; principal; 2017-03-25)
PROC: 0X6L0Z0 Detachment at Right Thumb, Complete, Open Approach (ICD-10-PCS; principal; 2017-03-25)
PROC: 0X6V0Z0 Detachment at Right Little Finger, Complete, Open Approach (ICD-10-PCS; principal; 2017-03-25)
PROC: 0X6T0Z0 Detachment at Left Ring Finger, Complete, Open Approach (ICD-10-PCS; principal; 2017-03-25)
PROC: 0T778DZ Dilation of Left Ureter with Intraluminal Device, Via Natural or Artificial Opening Endoscopic (ICD-10-PCS; principal; 2017-03-25)
PROC: 0X6S0Z0 Detachment at Right Ring Finger, Complete, Open Approach (ICD-10-PCS; principal; 2017-03-25)
PROC: 0X6R0Z0 Detachment at Left Middle Finger, Complete, Open Approach (ICD-10-PCS; principal; 2017-03-25)
PROC: 0TC78ZZ Extirpation of Matter from Left Ureter, Via Natural or Artificial Opening Endoscopic (ICD-10-PCS; principal; 2017-03-25)
PROC: 0X6Q0Z0 Detachment at Right Middle Finger, Complete, Open Approach (ICD-10-PCS; principal; 2017-03-25)
PROC: 05H933Z Insertion of Infusion Device into Right Brachial Vein, Percutaneous Approach (ICD-10-PCS; 2017-03-26)
DX: A41.9 Sepsis, unspecified organism (principal); E43 Unspecified severe protein-calorie malnutrition; N17.9 Acute kidney failure, unspecified; G72.81 Critical illness myopathy; N13.2 Hydronephrosis with renal and ureteral calculous obstruction; I96 Gangrene, not elsewhere classified; I50.9 Heart failure, unspecified; Z96.641 Presence of right artificial hip joint; E03.9 Hypothyroidism, unspecified; Z90.49 Acquired absence of other specified parts of digestive tract; I48.91 Unspecified atrial fibrillation; N18.9 Chronic kidney disease, unspecified; N28.89 Other specified disorders of kidney and ureter; F32.9 Major depressive disorder, single episode, unspecified; E66.9 Obesity, unspecified; Z88.1 Allergy status to other antibiotic agents; Z88.2 Allergy status to sulfonamides; Z93.6 Other artificial openings of urinary tract status; Z82.49 Family history of ischemic heart disease and other diseases of the circulatory system; Z90.710 Acquired absence of both cervix and uterus; Z68.27 Body mass index [BMI] 27.0-27.9, adult
CPT/HCPCS: 10102; 50010; 50101; 50164; 50386; 50951; 51179; 51620; 51767; 53331; 56526; 56528; 56674; 57006; 57091; 62110; 62900; 70005

== ENCOUNTER 2017-04-01 12:05 | Inpatient (IN) | payer OTHER ==
[~2017-04-01] VITALS: Ht 152.4 cm; Wt 85.5 kg
--- NOTE | ~2017-04-01 | HC ---
[facility] [place] [address] CONSULTATION Name: TRAVIS FISCHER Room #: 513-P ADM IN M.R.#: [id number] Admission: 04/01/17 Attend Phys: Jono Good MD Discharge: Date of : 43 Report #: [id number] THIS REPORT FOR: //name// CC: Jono Good [facility] unknown DATE OF SERVICE: 04/06/2017 NEUROBEHAVIORAL STATUS EXAM: ATTENDING PHYSICIAN: Jono Good MD. HEALTH SCIENCE SPECIALIST: Colton Nj, PhD. CLINICAL PRESENTATION: The patient is a 71-year-old female admitted to the rehabilitation unit at [facility] for a comprehensive inpatient rehabilitation program to improve functional mobility, activities of daily living and self-care secondary to deficits from critical illness myopathy. The patient's diagnoses include dry gangrene, multiple fingers and toes, status post multiple distal upper extremity digit amputation, left hydronephrosis and urolithiasis. She underwent a nephrostomy tube placement and had a stone laser treatment and now has a stent in place, significant functional mobility and activities of daily living deficits, prior history of total hip replacement with dislocation x 2, recent severe septic shock, renal insufficiency and congestive heart failure. A complete description of her medical condition and history along with medications can be found in her medical record. Neuropsychological consultation was requested to provide assistance in the assessment of emotional status and to provide psychological services as needed. Prior to this most recent medical event, she was living independently in her own home in [place]. She was visiting her son and [id number] and grandchildren when she lost consciousness and fell. Patient was brought to the hospital for evaluation and treatment. The patient is a retired high school mathematics teacher. She is with 3 children. The patient has 1 brother. She describes a good social support network in [place]. She reports a longstanding history of treatment for depression and anxiety. TECHNIQUES UTILIZED: Clinical interview, review of medical records, staff consultation and behavioral observation. EXAMINATION FINDINGS: The patient was alert and cooperative with the assessment. She accurately described events surrounding her admission. The patient has an extended period of amnesia. She remembers events immediately prior to her fall. Her next memory is several weeks later when coming off of ventilator. [facility] [address] [place] [address] CONSULTATION Name: TRAVIS FISCHER Room #: 513-P [facility] IN M.R.#: [id number] Admission: 04/01/17 Attend Phys: Jono Good MD Discharge: Date of : 43 Report #: [id number] She describes feelings of anxiety and depression. She also reports decreased appetite, sleep disturbance and variability in mood. The variability in mood is primarily focused on the extent of help that she requires to carry out activities of daily living and anxiety regarding increased dependence on others. A family history of dementia in her mother is reported. The patient indicates variability in her memory. Neurocognitive functioning was not assessed during this interview. The focus of attention during this assessment was on her emotional state and assistance in adjustment. DIAGNOSTIC IMPRESSION: 1. Major depressive disorder -- recurrent, without psychotic features. 2. Unspecified anxiety disorder. RECOMMENDATIONS: Continued psychological services to assist in adjustment. The use of relaxation techniques will help assist in the management of anxiety. Cognitive reframing focused on current functioning in comparison to her level of functioning when she was at her worst. Additionally, direct her attention toward current levels of ability and distract her away from focusing on disability. She will also benefit from establishing specific goals toward adjustment, e.g., looking at her hands rather than obstructing her view with a towel during the dressing changes of her fingers. The use of relaxation techniques to help manage the anxiety associated with dressing changes will also benefit overall recovery. A focus on strengths and regaining independence will also further diminish her sense of vulnerability. I will continue to follow as needed. Thank you very much for allowing me to provide psychological consultation on this patient. <ELECTRONICALLY SIGNED> By: Colton Nj, PhD 04/08/17 1853 1750 [id number] Colton Nj, PhD /nt
--- NOTE | ~2017-04-01 | PLAN ---
[facility] [place] [address] REHAB UNIT PLAN OF CARE Name: TRAVIS FISCHER Room #: 513-P ADM IN M.R.#: [id number] Admission: 04/01/17 Attend Phys: Jono Good MD Discharge: Date of : 43 Report #: [id number] THIS REPORT FOR: //name// CC: Jono Good [facility] unknown DATE OF SERVICE: 04/03/2017 The patient is seen back earlier in followup. She was in no distress. Temperature 37.4, pulse 102, respirations 17, blood pressure 115/60. She was sleepy, but would arouse. She has the Al catheter in place. Transfers are max assist. She is dependent for lower body dressing. Max assist for bathing. ASSESSMENT: 1. Critical illness myopathy. 2. Dry gangrene, multiple fingers and toes. She is status post multiple distal upper extremity digit amputations by Orthopedics. 3. Left hydronephrosis with ureterolithiasis. She underwent nephrostomy tube placement and had the stone laser treated and now had the stent in place. 4. Significant functional mobility and ADL deficits. 5. Prior history of total hip replacement on the right with dislocation x 2. 6. Renal insufficiency. 7. Recent severe septic shock. 8. Congestive heart failure. PLAN: The overall plan of care is based on the preadmission screen, post-admission physician evaluation and information garnered from therapy assessments. 1. Estimated length of stay is probably going to be very long as she has had a low level. 2. Medical prognosis is reasonably good. 3. Anticipated interventions includes the interdisciplinary acute inpatient rehabilitation team with PT and OT, rehab nursing, assisting regarding medication management, skin care prophylaxis, bowel and bladder issues and nursing education. We will have the multiple admissions consultant physicians, continue to follow as well as case management and the rehab therapy team. 4. Anticipated functional outcomes would be for her to hopefully become modified independent at the wheelchair initially and then progress from there. 5. Discharge destination would be back home with family. Discussed the son here in [facility] and a daughter in [place]. 6. Expected therapy by discipline includes PT and OT 1-1/2 hours per day each [facility] [address] [place] [address] REHAB UNIT PLAN OF CARE Name: TRAVIS FISCHER Room #: 513-P ADM IN [facility].#: [id number] Admission: 04/01/17 Attend Phys: Jono Good MD Discharge: Date of : 43 Report #: [id number] five days a week throughout the duration of the acute inpatient rehabilitation stay. <ELECTRONICALLY SIGNED> By: Jono Good MD 04/06/17 1510 1036 1607 Jono Good MD /PMT
--- NOTE | ~2017-04-01 | H ---
[facility] [place] [address] HISTORY AND PHYSICAL Name: TRAVIS FISCHER Room #: 513-P ADM IN M.R.#: [id number] Admission: 04/01/17 Attend Phys: Jono Good MD Discharge: Date of : 43 Report #: [id number] THIS REPORT FOR: //name// CC: Jono Good [facility] unknown DATE OF SERVICE: 04/01/2017 HISTORY OF PRESENT ILLNESS: The patient is a 71-year-old white female who had had a week hospitalization at [facility] from 02/17/2017-03/03/2017 with septic shock requiring intubation, full support. She was noted to have a left hydronephrosis with urolithiasis. This was thought to be the source of sepsis with E. coli growing out from the blood cultures. Interventional Radiology was consulted and a percutaneous nephrostomy tube was done. She developed dry gangrene of multiple fingers and toes. She was discharged to [facility], where she gradually progressed. Her distal finger and toe necrosis demarcated. She received Darco shoes and started very limited short distance ambulation within the parallel bars. She was readmitted to [facility]. She underwent nephrostomy tube placement with laser treatment of the ureteral stone and ureteral stenting. The nephrostomy tube has been removed with a stent in place for now. She also underwent multiple distal finger amputations. She continues with significant weakness and debilitation with her critical illness myopathy and now has been admitted for acute in-hospital inpatient rehabilitation. PAST MEDICAL HISTORY: Prior right hip replacement in 2012. She has had a couple of dislocations that had to be surgically repaired. She notes that right hip is not as strong as the left. She also has a history of CHF and urinary tract infection. ALLERGIES: No known drug allergies. FAMILY HISTORY: Hypertension. HABITS: No history of alcohol or tobacco abuse noted. SOCIAL HISTORY: Lives in [place], [facility]. There is a daughter who lives up in [place] as well. The patient was visiting her son in town here when she had the acute hospitalization. She notes that she and her children have 2 story houses. She has been living alone, did not utilize gait aids premorbidly and was a community ambulator. REVIEW OF SYSTEMS: No current complaints of chest pain, shortness of breath, abdominal discomfort. Again, she notes that right hip has always been weak. Some distal toe and finger discomfort as she has involvement of her toes as well. [facility] [address] [place] [address] HISTORY AND PHYSICAL Name: TRAVIS FISCHER Room #: 513-P [facility] IN [facility].#: [id number] Admission: 04/01/17 Attend Phys: Jono Good MD Discharge: Date of : 43 Report #: [id number] PHYSICAL EXAMINATION: GENERAL: A 71-year-old white female in no obvious distress. VITAL SIGNS: Last recorded temperature 98.1, pulse 66, respirations 19, blood pressure 114/60. The patient is alert and pleasant. HEENT: Appeared to be benign. Cranial nerves are grossly intact. Facies are symmetric. CHEST: Sounded clear to auscultation. CARDIAC: Regular rate and rhythm. ABDOMEN: Mildly overweight. Bowel sounds positive, nontender. GENITOURINARY AND RECTAL: Deferred. EXTREMITIES: She has functional range of motion of both upper extremities proximal, shoulders and elbows. Strength is probably grade 4- to 3+/5. Distally, she has had the multiple finger amputations distal digits. Right is more involved with complete amputation of that right fourth digit. All of her remaining fingers are wrapped. She does have movement of her wrist bilaterally, but again has limited movement of her fingers obviously. Examination of her lower extremities, right hip is a little weaker than the left, probably 4- to 3+ compared to 4-. Proximal strength otherwise is probably grade 4- to 3+ throughout. She does have some distal toe necrosis, which is being monitored of multiple toes. She is needing assistance with basic functional mobility skills. Transfers have been max assist. ASSESSMENT: A 71-year-old white female with the following problem list: 1. Critical illness myopathy. 2. Dry gangrene, multiple fingers and toes. She is status post multiple distal upper extremity digit amputation by Orthopedics. 3. Left hydronephrosis with ureterolithiasis. She underwent nephrostomy tube placement and had the stone laser treated and now has a stent in place. 4. Significant functional mobility and activities of daily living deficits, 5. Prior history of hip total replacement with dislocation x 2. 6. Renal insufficiency. 7. Recent severe septic shock. 8. Congestive heart failure. PLAN: The patient is admitted for acute in-hospital inpatient rehabilitation. From a postadmission physician evaluation perspective, there are no relevant changes since the preadmission screening. Please see the above review of prior and current medical and functional conditions and comorbidities. Please see the patient's previous and current functional status. As far as risk of complications, she does have the multiple medical comorbidities as noted above. Initial plan of care involves the interdisciplinary acute inpatient rehabilitation program with goal of maximizing the patient's functional independence, so that she can hopefully return back to her prior living situation. Measurable functional goals would be for her to become modified independent with transfers, mobility and ADLs, so she can return back to the [place] [id number] HISTORY AND PHYSICAL Name: TRAVIS FISCHER Room #: 513-P ADM IN M.R.#: [id number] Admission: 04/01/17 Attend Phys: Jono Good MD Discharge: Date of : 43 Report #: [id number] home setting. Prognosis is reasonably good with estimated length of stay probably fairly long with her lower functional level. Potential barriers would include her multiple medical comorbidities and decreased functional status. The patient meets diagnostic criteria for an acute in-hospital inpatient rehabilitation stay. She meets medical necessity criteria with the multiple medical comorbidities as noted above. We will have the home service consultant physicians continue to follow. She does have the tolerance for her rehab therapy program and has appropriate discharge goals back to the home setting. <ELECTRONICALLY SIGNED> By: Jono Good MD 04/06/17 1510 0948 1029 Jono Good MD /[facility]
[~2017-04-01 12:05] MED LIST changes: +APAP650 PO; +ARTIFICIAL TEAR15 M1 OPHTHALMIC; +BISACODYL SUPP10 MG RECTAL; +CEFPODOXIME PR200 M1 PO; +DIPHENHIST50 MG PO; +DURAGESIC25 MCG/HR TRANSDERM; +ENOXAPARIN40 MG/0.1 SUBQ; +FLONASE 0.05%50 MCG NASAL; +NORVASC10 MG PO; +PERCOCET 10-321 EACH PO; +PROBIOTIC1 EAC2 PO; +TRAMADOL 50 MG50 MG PO; +ULTRAM 50MG TAB50 MG PO
[2017-04-01 22:35] VITALS: BP 114/60
[2017-04-02 05:58] LABS: HEMATOCRIT 23.6 % (37.0-47.0); HEMOGLOBIN 7.5 gm/dL (12.0-15.0); MCH 30.4 pg (26.0-34.0); MCHC 31.7 g/dL (28.0-37.0); MCV 95.8 fL (80.0-100.0); RBC 2.46 mil/uL (4.20-5.00); RDW 19.6 % (10.5-14.5); WBC 7.2 thou/uL (4.0-11.0)
[2017-04-02 06:10] LABS: INR 1.5; PROTIME 14.8 Seconds (9.3-11.4)
[2017-04-02 06:13] LABS: ALBUMIN 2.1 g/dL (3.4-5.0); CALCIUM 8.4 mg/dL (8.5-10.1); CREATININE 1.5 mg/dL (0.6-1.0); PHOSPHORUS 3.5 mg/dL (2.5-4.9); POTASSIUM 4.3 mmol/L (3.5-5.1)
[2017-04-02 08:30] VITALS: BP 97/56
[2017-04-02 13:34] VITALS: BP 100/50
[2017-04-02 20:32] VITALS: BP 108/54
[2017-04-03 08:00] VITALS: BP 115/60
[2017-04-03 19:25] VITALS: BP 86/55
[2017-04-04 07:52] LABS: ALBUMIN 2.2 g/dL (3.4-5.0); CREATININE 1.4 mg/dL (0.6-1.0); PHOSPHORUS 2.9 mg/dL (2.5-4.9); POTASSIUM 4.2 mmol/L (3.5-5.1)
[2017-04-04 09:00] VITALS: BP 96/60
[2017-04-04 20:05] VITALS: BP 99/43
[2017-04-05 08:00] VITALS: BP 98/48
[2017-04-05 19:34] VITALS: BP 99/58
[2017-04-06 08:15] VITALS: BP 92/53
[2017-04-06 19:50] VITALS: BP 97/56
[2017-04-07 06:20] LABS: ABSOLUTE NEUTROPHILS 3.8 thou/uL (1.4-8.2); BASOPHILS 1.4 % (0.0-2.0); EOSINOPHILS 12.5 % (0.0-3.0); HEMATOCRIT 23.5 % (37.0-47.0); HEMOGLOBIN 7.7 gm/dL (12.0-15.0); LYMPHOCYTES 15.1 % (24.0-44.0); MCH 30.6 pg (26.0-34.0); MCHC 32.9 g/dL (28.0-37.0); MCV 92.9 fL (80.0-100.0); MONOCYTES 8.9 % (1.0-8.0); PLATELET COUNT 218 thou/uL (150-400); POLYS 62.1 % (36.0-66.0); RBC 2.53 mil/uL (4.20-5.00); RDW 19.2 % (10.5-14.5); WBC 6.2 thou/uL (4.0-11.0)
[2017-04-07 06:35] LABS: ALBUMIN 2.3 g/dL (3.4-5.0); CALCIUM 8.1 mg/dL (8.5-10.1); CREATININE 1.6 mg/dL (0.6-1.0); MAGNESIUM 1.9 mg/dL (1.8-2.4); PHOSPHORUS 2.6 mg/dL (2.5-4.9); POTASSIUM 4.3 mmol/L (3.5-5.1)
[2017-04-07 07:30] VITALS: BP 93/74
[2017-04-07 20:03] VITALS: BP 104/61
[2017-04-08 07:40] VITALS: BP 90/61
[2017-04-08 19:45] VITALS: BP 100/52
[2017-04-09 07:38] VITALS: BP 94/42
[2017-04-09 20:00] VITALS: BP 96/50
[2017-04-10 05:52] LABS: ABSOLUTE NEUTROPHILS 4.2 thou/uL (1.4-8.2); BASOPHILS 1.9 % (0.0-2.0); EOSINOPHILS 10.9 % (0.0-3.0); HEMATOCRIT 23.2 % (37.0-47.0); HEMOGLOBIN 7.5 gm/dL (12.0-15.0); LYMPHOCYTES 19.1 % (24.0-44.0); MCHC 32.2 g/dL (28.0-37.0); MCV 93.1 fL (80.0-100.0); MONOCYTES 6.9 % (1.0-8.0); PLATELET COUNT 237 thou/uL (150-400); POLYS 61.2 % (36.0-66.0); RDW 19.5 % (10.5-14.5); WBC 6.9 thou/uL (4.0-11.0)
[2017-04-10 06:06] LABS: ALBUMIN 2.3 g/dL (3.4-5.0); CALCIUM 8.5 mg/dL (8.5-10.1); CREATININE 1.8 mg/dL (0.6-1.0); MAGNESIUM 1.9 mg/dL (1.8-2.4); PHOSPHORUS 3.3 mg/dL (2.5-4.9)
[2017-04-10 20:17] VITALS: BP 94/70
[2017-04-11 08:55] VITALS: BP 110/56
[2017-04-11 20:09] VITALS: BP 107/55
[2017-04-12 06:46] LABS: ALBUMIN 2.7 g/dL (3.4-5.0); CALCIUM 8.7 mg/dL (8.5-10.1); CREATININE 1.7 mg/dL (0.6-1.0); PHOSPHORUS 3.7 mg/dL (2.5-4.9)
[2017-04-12 08:00] VITALS: BP 111/85
[2017-04-12 20:00] VITALS: BP 96/63
[2017-04-13 07:15] VITALS: BP 90/46
[2017-04-13 17:43] LABS: URINE BILIRUBIN NEGATIVE (Negative); URINE BLOOD 1+ (Negative); URINE CLARITY CLOUDY; URINE COLOR YELLOW; URINE GLUCOSE-RANDOM* NEGATIVE (Negative); URINE KETONES NEGATIVE (Negative); URINE NITRITE-REFLEX NEGATIVE (Negative); URINE PROTEIN (DIPSTICK) 1+ (Negative); URINE UROBILINOGEN 0.2 E.U./dl (0.2-1.0)
[2017-04-13 17:47] LABS: URINE LEUKOCYTES-REFLEX 3+ (Negative)
[2017-04-13 17:53] LABS: BACTERIA-REFLEX >30 Many /HPF (None Seen); CASTS None Seen /LPF (None Seen); MUCUS >6 Heavy strn/LPF (None Seen); SQUAMOUS 4-10 Moderate /LPF (0-3); URINE RBC 3-10 Few /HPF (0-2); URINE WBC-REFLEX >25 Many /HPF (0-5)
[2017-04-13 17:54] LABS: AMORPHOUS URATES Many /LPF (None Seen)
[2017-04-13 19:35] VITALS: BP 98/61
[2017-04-14 04:12] LABS: ALBUMIN 2.6 g/dL (3.4-5.0); CALCIUM 8.8 mg/dL (8.5-10.1); CREATININE 1.8 mg/dL (0.6-1.0); PHOSPHORUS 3.8 mg/dL (2.5-4.9); POTASSIUM 4.3 mmol/L (3.5-5.1)
[2017-04-14 08:00] VITALS: BP 98/67
[2017-04-14 20:19] VITALS: BP 98/68
[2017-04-15 08:30] VITALS: BP 100/52
[2017-04-15 19:35] VITALS: BP 157/117
[2017-04-15 20:25] VITALS: BP 97/51
[2017-04-16 07:30] VITALS: BP 97/53
[2017-04-16 08:06] VITALS: BP 97/53
[2017-04-16] MEDS ORDERED: VISTARIL 25 MG25 M1 PO (08:14)
[2017-04-16] MEDS ORDERED: AMOXICILLIN 50500 M1 PO (08:14)
[2017-04-16] MEDS ORDERED: COLACE100 MG PO (08:14)
[2017-04-16] MEDS ORDERED: FLOMAX0.4 MG PO (08:14)
[2017-04-16] MEDS ORDERED: DICYCLOMINE HCL20 MG PO (08:14)
[2017-04-16] MEDS ORDERED: NEURONTIN 300300 M1 PO (08:14)
[2017-04-16] MEDS ORDERED: IRON325 PO (08:14)
[2017-04-16] MEDS ORDERED: ACIDOPHILUS1 EAC4 PO (08:14)
[2017-04-16] MEDS ORDERED: NYAMYC15 GM TOP (08:14)
[2017-04-16 11:09] LABS: ALBUMIN 2.5 g/dL (3.4-5.0); CALCIUM 8.2 mg/dL (8.5-10.1); CREATININE 1.9 mg/dL (0.6-1.0); PHOSPHORUS 3.5 mg/dL (2.5-4.9); POTASSIUM 4.1 mmol/L (3.5-5.1)
== END 2017-04-16 14:00 | DRG 91 ==
LOC: ENTRNSPT 04-16 13:49 → EDTRNSPTSTS 04-16 13:54
PROVIDERS: Hospitalist; Nurse Practitioner; Physical Medicine & Rehabilitation
DX: G72.81 Critical illness myopathy (principal); A41.51 Sepsis due to Escherichia coli [E. coli]; R65.21 Severe sepsis with septic shock; I96 Gangrene, not elsewhere classified; N13.2 Hydronephrosis with renal and ureteral calculous obstruction; N17.9 Acute kidney failure, unspecified; Z89.029 Acquired absence of unspecified finger(s); Z96.641 Presence of right artificial hip joint; R53.81 Other malaise; I50.9 Heart failure, unspecified; Z87.440 Personal history of urinary (tract) infections; Z82.49 Family history of ischemic heart disease and other diseases of the circulatory system; K59.00 Constipation, unspecified; R52 Pain, unspecified; N18.9 Chronic kidney disease, unspecified; Z88.2 Allergy status to sulfonamides
CPT/HCPCS: 10112